=== PATIENT | male | born 1945 | race Caucasian/White ===

== ENCOUNTER 2016-08-15 13:50 | Inpatient (IN) | payer MEDICARE, BC ==
[~2016-08-15] VITALS: Ht 177.8 cm; Wt 60.8 kg
[~2016-08-15 13:50] MED LIST: /AMLO25TA PO; /AUGM875TA; /MOXI40TA PO; /PANT40TA PO; /SALMDISK; /WARF2TA; /WARF3TA; ADV500INH INH; ADVA230A INH; ALBU0.084 IN; ALBU17IN INH; ATOR1TAB19 PO; AZIT250T3 PO; AZIT500T2 PO; BACT400T; BROV15NE NEB; CARD180C4 PO; CLOT10TR MT; COLA50CA3 OR; COMBIVENT; COMBVENT; DILT180C PO; FLAG500T; FLUC10TA; FURO20TA2 PO; HYDR12.56 PO; HYDR25TA6; LASI20TA PO; LEVA1.256 INH; LEVA12INH INH; LEVA500T; LEVA500T PO; LEVO250T PO; LEVO750T33 PO; LISI10TA4 PO; LISI20TA5; MAG400TA PO; METO-209 PO; METO50TA2 PO; MILKSUS PO; MYLASSUD PO; NYST-6 TOP; NYST10CR MT; PANT40TA2 PO; POTA10CA PO; POTA20TA PO; POTA20TA4 PO; PRAD150C PO; PRED10TA PO; PRED10TA2; PRED10TA2 PO; PRED1TAB32 PO; PRED5TA PO; PREDPOW10; PRIN10TA PO; PROA1AER IN; PROAAER IN; PROT1TAB2 PO; PULM1SUS NEB; SENN8.6C PO; SENO8.6T10 PO; SILD50TA; SPIR1CAP IN; SPIR1CAP INH; SPIRIVA INH; SYMB80AE IN; TIOT18INH INH; TOPA50TA7 PO; TOPR100T PO; TYLE167L PO; TYLE325T5 PO; VIAGRA; VITA100037 PO; VITA100066 PO; ZANT150T; ZEBE5TAB; ZITH500T; ZITH500T PO; [UNRECOGNIZED DRUG - OTHER] PO; spiriva handihaler INH
[2016-08-15] MEDS ORDERED: IPRATROPIUM 0.5MG/ALBUTEROL 2.5MG INH SOL UD 3ML (DUONEB)(J7620) As Ordered ONE ×2 (14:12→14:32)
[2016-08-15 14:16] LABS: BASO % 0.1 % (0.0-1.0); EOS # 0.1 K/mm3 (0.0-0.50); EOS % 0.9 % (0.0-3.0); LARGE UNSTAINED CELL # 0.2 K/mm3 (0.0-0.4); LARGE UNSTAINED CELL % 1.9 % (0.0-4.0); LYMPH # 1.1 K/mm3 (1.5-4.5); LYMPH % 7.8 % (24.0-44.0); MEAN CORPUSCULAR HEMOGLOBIN 29.7 pg (27.0-33.0); MEAN CORPUSCULAR HGB CONC 31.4 g/dl (32.0-36.5); MEAN CORPUSCULAR VOLUME 94.6 fl (80.0-96.0); MONO # 0.9 K/mm3 (0.0-0.8); MONO % 7.6 % (0.0-5.0); NEUTROPHILS # 9.5 K/mm3 (1.8-7.7); NEUTROPHILS % 81.7 % (36.0-66.0); PLATELET COUNT, AUTOMATED 175 k/mm3 (150-450); RED CELL DISTRIBUTION WIDTH 17.4 % (11.5-14.5); WHITE BLOOD COUNT 11.6 K/mm3 (4.0-10.0)
[2016-08-15 14:23] LABS: ABG BASE EXCESS -6.7 (-2.0-2.0); ABG DEVICE NASAL CANN; ABG HCO3 14.4 MEQ/L (22.0-26.0); ABG PARTIAL PRESSURE CO2 20.2 mmHg (35.0-45.0); ABG PARTIAL PRESSURE O2 57.1 mmHg (75.0-100.0); ABG STANDARD HCO3 18.9 MEQ/L (22.0-26.0)
[2016-08-15 14:24] LABS: INR 3.04
[2016-08-15] MEDS ORDERED: methylPREDNISolone INJ 125 MG/2 ML VIAL (J2930) As Ordered ONE (14:31)
--- NOTE | 2016-08-15 14:38 | REP ---
Clinical: Shortness of breath. Comparison: 03/26/2016. Findings: Mediastinum and cardiac silhouette are stable with mild cardiomegaly again suggested. Mild pulmonary vascular congestion cannot be excluded. No focal consolidation, effusion, or pneumothorax. Skeletal structures stable. Impression: Mild stable cardiomegaly. Cannot exclude mild pulmonary vascular congestion. Signed by Rich Vargas MD 08/15/2016 02:30 P
[2016-08-15 14:54] LABS: ANION GAP 14 MEQ/L (8-16); BLOOD UREA NITROGEN 66 MG/DL (7-18); CALCIUM LEVEL 8.7 MG/DL (8.8-10.2); CARBON DIOXIDE LEVEL 21 MEQ/L (21-32); CHLORIDE LEVEL 102 MEQ/L (98-107); CREATININE FOR GFR 2.16 MG/DL (0.70-1.30); GLOMERULAR FILTRATION RATE 32.3 (>42); GLUCOSE, FASTING 152 MG/DL (83-110); SODIUM LEVEL 137 MEQ/L (136-145)
[2016-08-15 15:00] LABS: POTASSIUM SERUM 5.2 MEQ/L (3.5-5.1)
[2016-08-15] MEDS ORDERED: FUROSEMIDE 40 MG/4 ML VIAL (J1940) As Ordered ONE (15:05)
--- NOTE | 2016-08-15 15:12 | REP ---
Clinical: Shortness of breath. Comparison: 11/14/2015. Findings: Advanced diffuse emphysematous changes are appreciated areas of peripheral fibrosis and scattered scarring. Small amount of trapped fluid is identified within the left major fissure and minimal thickening to the right major fissure is appreciated small areas of opacity with in the superior right lower lobe may reflect sequelae and residual changes from prior infiltrate which has otherwise essentially resolved when compared to 11/14/2015. No significant acute area of consolidation, pleural effusion or pneumothorax appreciated. Mild chronic pulmonary vascular congestion and cardiomegaly is appreciated along with atherosclerotic changes to the thoracic aorta and coronary arteries. No significant adenopathy. Skeletal structures demonstrate osteopenia and degenerative changes. Impression: Advanced emphysematous changes with peripheral fibrosis and scattered scarring and scattered chronic changes related to prior right lower lobe infiltrate which has resolved. No significant acute consolidation. Small amount of trapped fluid in the left major fissure. Signed by Rich Vargas MD 08/15/2016 03:04 P
[2016-08-15] MEDS ORDERED: BISACODYL 5 MG TAB PO PRN (16:15)
[2016-08-15] MEDS ORDERED: ACETAMINOPHEN 500 MG TAB PO PRN (16:15)
[2016-08-15] MEDS ORDERED: ONDANSETRON 4MG/2ML VIAL (J2405) IV PRN (16:15)
[2016-08-15] MEDS ORDERED: ALBUTEROL SULFATE 2.5 MG/0.5 ML INH NEB SOLN NEB PRN (17:00)
--- NOTE | 2016-08-15 17:56 | EDDOCDS ---
Nurse's Notes [facility] Name: Sanjay Saeed Age: 71 yrs Sex: Male : 1945 Arrival Date: 08/15/2016 Time: 13:50 Bed 12 Private MD: Diagnosis: Acute systolic (congestive) heart failure Presentation: 08/15 13:54 Presenting complaint: EMS states: admitted to [facility] last week for unknown reason and pml discharged on Tuesday - shortness of breath on exertion which is reportedly new. Adult Sepsis Screening: The patient does not have new or worsening altered mentation. Patient's respiratory rate is less than 22. Systolic blood pressure is greater than 100. Patient has a qSOFA score of 0- Negative Sepsis Screen. Suicide/Homicide risk assessment- the patient denies having any suicidal and/or homicidal ideations and does not present with any other emotional, behavioral or mental health complaints. Status: Patient is not a account services manager or dependent. Transition of care: patient was not received from another setting of care. 13:54 Acuity: JEREMY Level 3 pml 13:54 Method Of Arrival: Ambulance pml Triage Assessment: 13:59 General: Appears in no apparent distress, Behavior is appropriate for age, cooperative. pml Pain: Location: diaphragm Pain currently is 5 out of 10 on a pain scale. The patient is triaged at the bedside. See Assessment in Nurses Notes section of ED record. Neurological: Level of Consciousness is awake, alert, Oriented to person, place, time. Cardiovascular: Capillary refill < 3 seconds Rhythm is atrial fibrillation. 14:05 Respiratory: Onset: The symptoms/episode began/occurred gradually, Airway is patent pml Respiratory effort is unlabored, Respiratory pattern is regular, Breath sounds are diminished bilaterally. Respiratory: Reports shortness of breath on exertion since 1 month ago. GI: Abdomen is non- distended. Derm: Skin is pink, warm & dry. Bruising that is dark purple, bilateral arms. Historical: - Allergies: IV Dye; Norvasc; Prilosec; - Home Meds: 1. diltiazem HCl 180 mg Oral cpER 1 cap once daily 2. prednisone 5 mg Oral tab once daily 3. Pradaxa 150 mg oral cap 1 cap 2 times per day 4. Advair Diskus 230-21 mcg/act 2puffs BID Inhl 5. levalbuterol HCl 1.25 mg/3 mL inhalation nebu 3 mL every 8 hours 6. Klor-Con 10 10 mEq Oral TbER 1 tab once daily 7. furosemide 20 mg Oral tab 1 tab once daily 8. pantoprazole 40 mg oral TbEC 1 tab once daily 9. atorvastatin 10 mg oral tab 1 tab once daily 10. ProAir HFA 90 mcg/actuation inhalation HFAA 2 puffs every 6 hours 11. Spiriva with HandiHaler 18 mcg Inhl CpDv 1 cap once daily 12. metoprolol succinate 100 mg Tb24 1 tab once daily - PMHx: Atrial Fib; Cardiac arrestfrom respiratory [id number]; COPD; GERD; High Cholesterol; Hypertension; Pulmonary Hypertension; Renal Failure w/o Dialysis; - PSHx: Cataract Surgery- Bilateral; Appendectomy; - Social history: Smoking status: Patient states former smoker of tobacco. No barriers to communication noted, The patient speaks fluent Colombian, Speaks appropriately for age. - Family history: Not pertinent. - : The pt / caregiver states he / she is on anticoagulants: Pradaxa (Dabigatran) Home medication list is obtained from the patient. - Exposure Risk Screening:: None identified. Screenin:06 Screening information is obtained from the patient. Fall risk: At risk due to pml immobility. Assistance ADL's: requires no assistance with activities of daily living. Abuse/DV Screen: The patient / caregiver reports he/she is: not in a situation that causes fear, pain or injury. Nutritional screening: No deficits noted. Advance Directives: There is no active DNR order. home support is adequate. Assessment: 14:06 General: see triage note. pml 14:16 General: Spo2 noted to remain in mid 80s with 6lpm. respiratory at bedside with angelic pml in progress. will trial venti mask after neb completed . 14:37 General: spo2 improved to 90% with 40% venti mask in place. pml 15:08 General: Appears in no apparent distress, Behavior is appropriate for age, cooperative. pml Neurological: Level of Consciousness is awake, alert, Oriented to person, place, time. Cardiovascular: Capillary refill < 3 seconds Rhythm is atrial fibrillation. Respiratory: Airway is patent Respiratory effort is even, unlabored. Derm: Skin is pink, warm & dry. 16:00 General: resting on stretcher, Spo2 decreased to 86%, pt placed on 40% Venti again with pml positive effect. 17:10 General: Appears in no apparent distress, Behavior is appropriate for age, cooperative. pml Neurological: Level of Consciousness is awake, alert, Oriented to person, place, time. Cardiovascular: Capillary refill < 3 seconds Rhythm is atrial fibrillation. Respiratory: Airway is patent Respiratory effort is even, unlabored. Derm: Skin is pink, warm & dry. 17:52 General: Appears in no apparent distress, Behavior is appropriate for age, cooperative. pml 17:52 Neurological: Level of Consciousness is awake, alert, Oriented to person, place, time. pml Cardiovascular: Capillary refill < 3 seconds Rhythm is atrial fibrillation. Respiratory: Airway is patent Respiratory effort is even, unlabored. GI: Abdomen is non- distended. Derm: Skin is pink, warm & dry. Vital Signs: 13:56 BP 99 / 69 (auto/); pml 14:00 Pulse 68 MON; Pulse Ox 82% ; pml 14:04 BP 99 / 69; Pulse 77; Resp 18; Temp 96.8(TE); Pulse Ox 82% on 4 lpm NC; Weight 63.5 kg pml (R); Height 5 ft. 10 in. (177.80 cm) (R); Pain 0/10; 14:11 Pulse 66 MON; Pulse Ox 83% ; pml 14:12 BP 113 / 65 (auto/); pml 14:26 Pulse 62 MON; Pulse Ox 90% ; pml 14:27 BP 120 / 59 (auto/); pml 14:57 BP 124 / 61 (auto/); pml 15:04 Pulse 68 MON; Pulse Ox 100% ; pml 15:12 BP 124 / 75 (auto/); pml 15:12 Pulse 70 MON; Pulse Ox 96% ; pml 15:27 BP 124 / 72 (auto/); pml 15:28 Pulse 70 MON; Pulse Ox 91% ; pml 15:42 BP 185 / 70 (auto/); pml 15:43 Pulse 70 MON; Pulse Ox 89% ; pml 15:57 BP 127 / 74 (auto/); pml 15:58 Pulse 78 MON; Pulse Ox 86% ; pml 16:12 BP 148 / 72 (auto/); pml 16:13 Pulse 70 MON; Pulse Ox 90% ; pml 16:27 Pulse 74 MON; Pulse Ox 95% ; pml 16:27 BP 115 / 55 (auto/); pml 16:42 Pulse 72 MON; Pulse Ox 93% ; pml 16:42 BP 116 / 60 (auto/); pml 16:57 Pulse 76 MON; Pulse Ox 94% ; pml 16:57 BP 133 / 72 (auto/); pml 17:54 BP 127 / 71; Pulse 83; Resp 20; Temp 97.8; Pulse Ox 93% on 40% Venturi mask; Pain 0/10; pml 14:04 Body Mass Index 20.09 (63.50 kg, 177.80 cm) [facility] Vitals: 14:05 Log In Time N/A - ambulance arrival. [facility] ED Course: 13:51 Patient visited by Marycruz Lennon, Perl Developer. deg 13:51 Eliz Fraga,RN is Primary Nurse. deg 13:51 Patient moved to Waiting deg 13:51 Patient moved to 12 deg 13:52 Alexander Tamez MD is Attending Physician. br1 13:56 Triage Initiated pml 14:03 Patient visited by Alexander Tamez MD. br1 14:06 The patient / caregiver is instructed regarding the plan of care and ED course. Patient pml has correct armband on for positive identification. Placed in gown. Bed in low position. Call light in reach. Side rails up X2. front desk monitor on. Pulse ox on. NIBP on. 14:06 O2 via nasal cannula \T\ 6L/min. pml 14:07 Inserted peripheral IV: 20gauge IV in right antecubital area and blood collected. pml Patient tolerated the procedure well. by AMILCAR Quiroga. 14:12 Patient visited by Angelo Em. jml1 14:12 EKG done. (by ED staff). Reviewed by Alexander Tamez MD. jml1 14:18 Patient visited by Eliz Fraga,AMILCAR. pml 14:19 -Arterial Blood Gas Sent. lb 14:30 Patient visited by Eliz Fraga,AMILCAR. pml 14:37 O2 via Venturi mask \T\ 12L/min - 40%. pml 14:38 Patient visited by Eliz Fraga RN. pml 14:47 Chest, 1 View Returned. EDMS 15:09 Patient visited by Eliz Fraga RN. pml 15:09 O2 via Venturi mask \T\ 6L/min - 30%. pml 15:25 CT Chest Without Contrast Returned. EDMS 15:45 Patient visited by Alexander Tamez MD. br1 16:04 Ekta Payne is Hospitalizing Provider. br1 16:21 [facility] Payment Agreement was scanned into [employer] and attached to record. zo 17:52 No procedures done that require assistance. pml Administered Medications: 14:20 Drug: Albuterol-Ipratropium 3 ml [ipratropium-albuterol 0.5 mg-3 mg(2.5 mg base)/3 mL lb nebulization soln (3 mL)] Route: Inhalation; 14:35 Drug: Albuterol-Ipratropium 3 ml [ipratropium-albuterol 0.5 mg-3 mg(2.5 mg base)/3 mL km6 nebulization soln (3 mL)] Route: Inhalation; 14:37 Drug: Solu-MEDROL 125 mg [Solu-Medrol 500 mg intravenous solution (125 mg)] Route: IVP; pml Site: right antecubital; 15:08 Drug: Furosemide 40 mg [furosemide 10 mg/mL injection solution (4 mL)] Route: IVP; pml Site: right antecubital; Output: 17:54 Urine: 225.00ml (Voided); Total: 225.00ml. pml RT: 14:20 ABG's drawn from right radial artery allens test done and positive pressure held for 5 lb minutes no bleeding noted pressure bandage applied specimen sent pt. tolerated well. 14:20 Initial Med Neb Given as ordered Patient was instructed and evaluated on procedure lb Patient tolerated procedure well without adverse effect. Respiratory: Breath sounds are diminished bilaterally. 14:35 Subsequent Med Neb Given as ordered Patient tolerated procedure well without adverse km6 effect. Respiratory: Breath sounds are diminished bilaterally. Order Results: Lab Order: B-Type Natiuretic Peptide; SPEC'M 08/15/16 14:08 Test: BRAIN NATRIURETIC PEPTIDE; Value: 3460; Range: <100; Abnormal: Above high normal; Units: PG/ML; Status: F Lab Order: Basic Metabolic Profile; SPEC'M 08/15/16 14:08 Test: GLUCOSE, FASTING; Value: 152; Range: 83-110; Abnormal: Above high normal; Units: MG/DL; Status: F Test: BLOOD UREA NITROGEN; Value: 66; Range: 7-18; Abnormal: Above high normal; Units: MG/DL; Status: F Test: CREATININE FOR GFR; Value: 2.16; Range: 0.70-1.30; Abnormal: Above high normal; Units: MG/DL; Status: F Test: GLOMERULAR FILTRATION RATE; Value: 32.3; Range: >42; Abnormal: Below low normal; Status: F Test: SODIUM LEVEL; Value: 137; Range: 136-145; Units: MEQ/L; Status: F Test: POTASSIUM SERUM; Value: 5.2; Range: 3.5-5.1; Abnormal: Above high normal; Units: MEQ/L; Status: F Test: CHLORIDE LEVEL; Value: 102; Range: 98-107; Units: MEQ/L; Status: F Test: CARBON DIOXIDE LEVEL; Value: 21; Range: 21-32; Units: MEQ/L; Status: F Test: ANION GAP; Value: 14; Range: 8-16; Units: MEQ/L; Status: F Test: CALCIUM LEVEL; Value: 8.7; Range: 8.8-10.2; Abnormal: Below low normal; Units: MG/DL; Status: F Test Note: ; Units are mL/min/1.73 m2 Chronic Kidney Disease Staging per NKF: Stage I & II GFR >=60 Normal to Mildly Decreased Stage III GFR 30-59 Moderately Decreased Stage IV GFR 15-29 Severely Decreased Stage V GFR <15 Very Little GFR Left ESRD GFR <15 on CAMERA OPERATOR Lab Order: CBC with Diff; SPEC'M 08/15/16 14:08 Test: WHITE BLOOD COUNT; Value: 11.6; Range: 4.0-10.0; Abnormal: Above high normal; Units: K/mm3; Status: F Test: RED BLOOD COUNT; Value: 4.78; Range: 4.30-6.10; Units: M/mm3; Status: F Test: HEMOGLOBIN; Value: 14.2; Range: 14.0-18.0; Units: g/dl; Status: F Test: HEMATOCRIT; Value: 45.3; Range: 42.0-52.0; Units: %; Status: F Test: MEAN CORPUSCULAR VOLUME; Value: 94.6; Range: 80.0-96.0; Units: fl; Status: F Test: MEAN CORPUSCULAR HEMOGLOBIN; Value: 29.7; Range: 27.0-33.0; Units: pg; Status: F Test: MEAN CORPUSCULAR HGB CONC; Value: 31.4; Range: 32.0-36.5; Abnormal: Below low normal; Units: g/dl; Status: F Test: RED CELL DISTRIBUTION WIDTH; Value: 17.4; Range: 11.5-14.5; Abnormal: Above high normal; Units: %; Status: F Test: PLATELET COUNT, AUTOMATED; Value: 175; Range: 150-450; Units: k/mm3; Status: F Test: NEUTROPHILS %; Value: 81.7; Range: 36.0-66.0; Abnormal: Above high normal; Units: %; Status: F Test: LYMPH %; Value: 7.8; Range: 24.0-44.0; Abnormal: Below low normal; Units: %; Status: F Test: MONO %; Value: 7.6; Range: 0.0-5.0; Abnormal: Above high normal; Units: %; Status: F Test: EOS %; Value: 0.9; Range: 0.0-3.0; Units: %; Status: F Test: BASO %; Value: 0.1; Range: 0.0-1.0; Units: %; Status: F Test: LARGE UNSTAINED CELL %; Value: 1.9; Range: 0.0-4.0; Units: %; Status: F Test: NEUTROPHILS #; Value: 9.5; Range: 1.8-7.7; Abnormal: Above high normal; Units: K/mm3; Status: F Test: LYMPH #; Value: 1.1; Range: 1.5-4.5; Abnormal: Below low normal; Units: K/mm3; Status: F Test: MONO #; Value: 0.9; Range: 0.0-0.8; Abnormal: Above high normal; Units: K/mm3; Status: F Test: EOS #; Value: 0.1; Range: 0.0-0.50; Units: K/mm3; Status: F Test: BASO #; Value: 0.0; Range: 0.0-0.2; Units: K/mm3; Status: F Test: LARGE UNSTAINED CELL #; Value: 0.2; Range: 0.0-0.4; Units: K/mm3; Status: F Lab Order: Cardiac Injury Profile; [facility] 08/15/16 14:08 Test: CPK CREATINE PHOSPHOKINASE; Value: 230; Range: 39-308; Units: U/L; Status: F Test: CK-MB VALUE MASS; Value: 7.2; Range: 0.0-3.6; Abnormal: Above high normal; Units: NG/ML; Status: F Test: MB/CK RELATIVE INDEX; Value: 3.13; Range: < OR =4; Status: F Test Note: ; DIAGNOSIS CRITERIA MMB ng/ml Relative Index (RI) NON-AMI < or = 5 N/A BANG ZONE > 5 < or = 4 AMI > 5 > 4 Lab Order: Troponin; [facility] 08/15/16 14:08 Test: TROPONIN I; Value: 0.06; Range: < 0.10; Units: NG/ML; Status: F Test Note: ; Troponin I Reference Interval for [employer] LOCI: 99th Percentile= 0.00-0.045 ng/ml Risk Stratification: <= 0.10 ng/ml Decreased Risk for Adverse Clinical Events. 0.10-1.50 ng/ml Increased Risk for Adverse Clinical Events. Evaluation of additional criterion and/or repeat testing in 2-6 hours is suggested to rule out myocardial damage. >= 1.50 ng/ml Indicative of Myocardial Injury. Lab Order: PT/INR; [facility] 08/15/16 14:08 Test: PROTHROMBIN TIME; Value: 31.5; Range: 12.3-14.5; Abnormal: Above high normal; Units: SECONDS; Status: F Test: INR; Value: 3.04; Status: F Test Note: ; THERAPUTIC HUMAN INR VALUES INDICATIONS NORMAL RANGES PROPHYLAXIS/TREATMENT OF: VENOUS THROMBOSIS 2.0-3.0 PULMONARY EMBOLISM 2.0-3.0 PREVENTION OF SYSTEMIC EMBOLISM FROM: TISSUE HEART VALVES 2.0-3.0 ACUTE MYOCARDIAL INFARCTION 2.0-3.0 VALVULAR HEART DISEASE 2.0-3.0 ATRIAL FIBRILLATION 2.0-3.0 MECHANICAL VALVES(HIGH RISK) 2.5-3.5 RECURRENT MYOCARDIAL INFARCTION 2.5-3.5 Lab Order: PTT; [facility] 08/15/16 14:08 Test: PARTIAL THROMBOPLASTIN TIME; Value: 65.5; Range: 26.6-37.1; Abnormal: Above high normal; Units: SECONDS; Status: F Lab Order: -Arterial Blood Gas; SPEC'M 08/15/16 14:13 Test: ABG pH (ARTERIAL); Value: 7.470; Range: 7.350-7.450; Abnormal: Above high normal; Units: UNITS; Status: F Test: ABG PARTIAL PRESSURE CO2; Value: 20.2; Range: 35.0-45.0; Abnormal: Below low normal; Units: mmHg; Status: F Test: ABG PARTIAL PRESSURE O2; Value: 57.1; Range: 75.0-100.0; Abnormal: Below low normal; Units: mmHg; Status: F Test: ABG TOTAL CO2; Value: 15.0; Range: 23.0-31.0; Abnormal: Below low normal; Units: MEQ/L; Status: F Test: ABG HCO3; Value: 14.4; Range: 22.0-26.0; Abnormal: Below low normal; Units: MEQ/L; Status: F Test: ABG BASE EXCESS; Value: -6.7; Range: -2.0-2.0; Abnormal: Below low normal; Status: F Test: ABG STANDARD HCO3; Value: 18.9; Range: 22.0-26.0; Abnormal: Below low normal; Units: MEQ/L; Status: F Test: ABG O2 SATURATION; Value: 88.9; Range: 95.0-99.0; Abnormal: Below low normal; Units: %; Status: F Test: ABG DEVICE; Value: NASAL DOROTHY; Status: F Lab Order: D-Dimer Quant; SPEC'M 08/15/16 14:10 Test: D-DIMER QUANT; Value: 380.3; Range: <500; Units: ng/ml; Status: F Radiology Order: Chest, 1 View Test: Chest, 1 View REASON FOR EXAMINATION: Shortness of Breath; Clinical: Shortness of breath.; ; Comparison: 03/26/2016.; ; Findings:; Mediastinum and cardiac silhouette are stable with mild cardiomegaly again; suggested. Mild pulmonary vascular congestion cannot be excluded. No focal; consolidation, effusion, or pneumothorax. Skeletal structures stable.; ; Impression:; Mild stable cardiomegaly.; Cannot exclude mild pulmonary vascular congestion.; ; ; Signed by; Rich Vargas MD 08/15/2016 02:30 P; Radiology Order: CT Chest Without Contrast Test: CT Chest Without Contrast REASON FOR EXAMINATION: Shortness of Breath; Clinical: Shortness of breath.; ; Comparison: 11/14/2015.; ; Findings:; Advanced diffuse emphysematous changes are appreciated areas of peripheral; fibrosis and scattered scarring. Small amount of trapped fluid is identified; within the left major fissure and minimal thickening to the right major fissure; is appreciated small areas of opacity with in the superior right lower lobe may; reflect sequelae and residual changes from prior infiltrate which has otherwise; essentially resolved when compared to 11/14/2015. No significant acute area of; consolidation, pleural effusion or pneumothorax appreciated. Mild chronic; pulmonary vascular congestion and cardiomegaly is appreciated along with; atherosclerotic changes to the thoracic aorta and coronary arteries. No; significant adenopathy. Skeletal structures demonstrate osteopenia and; degenerative changes.; ; Impression:; Advanced emphysematous changes with peripheral fibrosis and scattered scarring; and scattered chronic changes related to prior right lower lobe infiltrate which; has resolved. No significant acute consolidation. Small amount of trapped fluid; in the left major fissure.; ; ; Signed by; Rich Vargas MD 08/15/2016 03:04 P; Outcome: 16:04 Decision to Hospitalize by Provider. br1 17:52 Discharge Assessment: Patient awake, alert and oriented x 3. No cognitive and/or pml functional deficits noted. Patient verbalized understanding of disposition instructions. patient administered narcotics - no. The following High Risk Discharge criteria are identified: None. Admitted to PCU accompanied by nurse, accompanied by tech, via stretcher, with oxygen, on monitor, with chart. Condition: good Condition: stable. No special radiology studies were completed. Admission hand-off: Report Faxed Fax receipt verified by Eugenio ADVISOR TO COMMAND IN COMBAT. Property :Personal belongings accompany Pt. 17:56 Patient left the ED. pml Signatures: Dispatcher [employer] EDMarycruz Snider, Perl Developer Unit deg Sharri Garcia Kimberly km6 Lisa Boyce Brian, MD MD br1 Angelo Em Paulina, RN RN pml Isaias Rodriguez rn1 Corrections: (The following items were deleted from the chart) 14:05 13:59 Cardiovascular: Capillary refill < 3 seconds Rhythm is pml [facility] 14:07 14:04 BP 99 / 69; Pulse 77bpm; Resp 18bpm; Pulse Ox 94% 4 lpm Nasal Cannula; Temp 96.8F pml Temporal; 63.5 kg Reported; Height 5 ft. 10 in. Reported; BMI: 20.0; Pain 0/10; rn1 17: 16:00 General: Appears in no apparent distress, Behavior is appropriate for age, pml cooperative, [facility] 16:00 Neurological: Level of Consciousness is awake, alert, Oriented to person, place, [facility] time, [facility] 16:00 Cardiovascular: Capillary refill < 3 seconds Rhythm is atrial fibrillation [facility] 16:00 Respiratory: Airway is patent Respiratory effort is even, unlabored, [facility] 16:00 Derm: Skin is pink, warm & dry. [facility] MTDD
--- NOTE | 2016-08-15 17:56 | EDDOCDS ---
Physician Documentation [facility], [place] Name: Sanjay Saeed Age: 71 yrs Sex: Male : 1945 Arrival Date: 08/15/2016 Time: 13:50 Bed 12 Private MD: Disposition: 08/15/16 16:04 Hospitalization ordered by Ekta Payne for Inpatient Admission. Preliminary diagnosis is Acute systolic (congestive) heart failure. - Bed requested for PCU. - Status is Inpatient Admission. pml - Condition is Stable. - Problem is new. - Symptoms have improved. Historical: - Allergies: IV Dye; Norvasc; Prilosec; - Home Meds: 1. diltiazem HCl 180 mg Oral cpER 1 cap once daily 2. prednisone 5 mg Oral tab once daily 3. Pradaxa 150 mg oral cap 1 cap 2 times per day 4. Advair Diskus 230-21 mcg/act 2puffs BID Inhl 5. levalbuterol HCl 1.25 mg/3 mL inhalation nebu 3 mL every 8 hours 6. Klor-Con 10 10 mEq Oral TbER 1 tab once daily 7. furosemide 20 mg Oral tab 1 tab once daily 8. pantoprazole 40 mg oral TbEC 1 tab once daily 9. atorvastatin 10 mg oral tab 1 tab once daily 10. ProAir HFA 90 mcg/actuation inhalation HFAA 2 puffs every 6 hours 11. Spiriva with HandiHaler 18 mcg Inhl CpDv 1 cap once daily 12. metoprolol succinate 100 mg Tb24 1 tab once daily - PMHx: Atrial Fib; Cardiac arrestfrom respiratory [id number]; COPD; GERD; High Cholesterol; Hypertension; Pulmonary Hypertension; Renal Failure w/o Dialysis; - PSHx: Cataract Surgery- Bilateral; Appendectomy; - Social history: Smoking status: Patient states former smoker of tobacco. No barriers to communication noted, The patient speaks fluent Yi, Speaks appropriately for age. - Family history: Not pertinent. - : The pt / caregiver states he / she is on anticoagulants: Pradaxa (Dabigatran) Home medication list is obtained from the patient. - Exposure Risk Screening:: None identified. Vital Signs: 08/15 13:56 BP 99 / 69 (auto/); pml 14:00 Pulse 68 MON; Pulse Ox 82% ; pml 14:04 BP 99 / 69; Pulse 77; Resp 18; Temp 96.8(TE); Pulse Ox 82% on 4 lpm NC; Weight 63.5 kg pml / 139.99 lbs (R); Height 5 ft. 10 in. (177.80 cm) (R); Pain 0/10; 14:11 Pulse 66 MON; Pulse Ox 83% ; pml 14:12 BP 113 / 65 (auto/); pml 14:26 Pulse 62 MON; Pulse Ox 90% ; pml 14:27 BP 120 / 59 (auto/); pml 14:57 BP 124 / 61 (auto/); pml 15:04 Pulse 68 MON; Pulse Ox 100% ; pml 15:12 BP 124 / 75 (auto/); pml 15:12 Pulse 70 MON; Pulse Ox 96% ; pml 15:27 BP 124 / 72 (auto/); pml 15:28 Pulse 70 MON; Pulse Ox 91% ; pml 15:42 BP 185 / 70 (auto/); pml 15:43 Pulse 70 MON; Pulse Ox 89% ; pml 15:57 BP 127 / 74 (auto/); pml 15:58 Pulse 78 MON; Pulse Ox 86% ; pml 16:12 BP 148 / 72 (auto/); pml 16:13 Pulse 70 MON; Pulse Ox 90% ; pml 16:27 Pulse 74 MON; Pulse Ox 95% ; pml 16:27 BP 115 / 55 (auto/); pml 16:42 Pulse 72 MON; Pulse Ox 93% ; pml 16:42 BP 116 / 60 (auto/); pml 16:57 Pulse 76 MON; Pulse Ox 94% ; pml 16:57 BP 133 / 72 (auto/); pml 17:54 BP 127 / 71; Pulse 83; Resp 20; Temp 97.8; Pulse Ox 93% on 40% Venturi mask; Pain 0/10; pml 14:04 Body Mass Index 20.09 (63.50 kg, 177.80 cm) pml MDM: 14:03 Electromechanical Assembler/Pulse Ox/q 30 min VS ordered. br1 14:03 IV Saline Lock ordered. br1 14:03 Rhythm Strip to chart ordered. br1 14:03 Undress patient appropriately for examination ordered. br1 14:03 B-Type Natiuretic Peptide Ordered. EDMS 14:03 Basic Metabolic Profile Ordered. EDMS 14:04 CBC with Diff Ordered. EDMS 14:04 Cardiac Injury Profile Ordered. EDMS 14:04 Troponin Ordered. EDMS 14:04 ECG WITH READING ER PHYS+CARDIAG ordered. EDMS 14:05 PT/INR Ordered. EDMS 14:05 PTT Ordered. EDMS 14:05 Chest, 1 View Ordered. EDMS 14:05 Oxygen at 4L/Min NC or Home dosage ordered. br1 14:05 Call Respiratory ordered. br1 14:06 -Arterial Blood Gas Ordered. EDMS 14:06 Albuterol-Ipratropium 3 ml Inhalation once ordered. br1 14:24 Call Respiratory complete. deg 14:26 CBC with Diff Reviewed. br1 14:26 PT/INR Reviewed. br1 14:26 PTT Reviewed. br1 14:26 -Arterial Blood Gas Reviewed. br1 14:29 Solu-MEDROL 125 mg IVP once ordered. br1 14:29 Albuterol-Ipratropium 3 ml Inhalation once ordered. br1 14:29 D-Dimer Quant Ordered. EDMS 14:38 CT Chest Without Contrast Ordered. EDMS 14:58 B-Type Natiuretic Peptide Reviewed. br1 14:58 D-Dimer Quant Reviewed. br1 14:58 Chest, 1 View Reviewed. br1 14:59 Furosemide 40 mg IVP once ordered. br1 15:00 BED REQUEST+ADM ordered. EDMS 15:40 Basic Metabolic Profile Reviewed. br1 15:40 Cardiac Injury Profile Reviewed. br1 15:40 Troponin Reviewed. br1 15:40 CT Chest Without Contrast Reviewed. br1 16:02 -Influenza A&B Rapid Antigen - Nose Ordered. EDMS 16:16 Financial registration complete. zo 16:21 Admission / Observation Status ordered. EDMS 16:21 2 GRAM SODIUM DIET ordered. EDMS 16:21 [facility] [place] Agreement was scanned into [employer] and attached to record. zo 16:54 PHYSICAL THERAPY EVAL & TREAT ordered. EDMS Administered Medications: 14:20 Drug: Albuterol-Ipratropium 3 ml [ipratropium-albuterol 0.5 mg-3 mg(2.5 mg base)/3 mL lb nebulization soln (3 mL)] Route: Inhalation; 14:35 Drug: Albuterol-Ipratropium 3 ml [ipratropium-albuterol 0.5 mg-3 mg(2.5 mg base)/3 mL km6 nebulization soln (3 mL)] Route: Inhalation; 14:37 Drug: Solu-MEDROL 125 mg [Solu-Medrol 500 mg intravenous solution (125 mg)] Route: IVP; pml Site: right antecubital; 15:08 Drug: Furosemide 40 mg [furosemide 10 mg/mL injection solution (4 mL)] Route: IVP; pml Site: right antecubital; Signatures: Dispatcher [employer] EDMS Marycruz Lennon, Trustee Of Estate Unit deg Lisa Boyce Brian, MD MD br1 Eliz Fraga RN RN pml Micheal Perez RN RN [facility] Sharri Garcia Kimberly 6 The chart was reviewed and I authenticate all verbal orders and agree with the evaluation and treatment provided.Attachments: 16:21 [facility] Payment Agreement zo MTDD
[2016-08-15 18:05] VITALS: BP 125/71
[2016-08-15] MEDS ORDERED: FUROSEMIDE 100 MG/10 ML VIAL (J1940) IV ONE (18:30)
[2016-08-15 19:59] VITALS: BP 120/70
[2016-08-15] MEDS: ATORVASTATIN 10 MG TAB PO SCH (20:18)
[2016-08-15] MEDS: SENOKOT S TAB PO SCH (20:18)
[2016-08-15] MEDS: ADVAIR HFA 230/21 INHALER INH SCH (20:35)
[2016-08-15] MEDS ORDERED: DABIGATRAN ETEXILATE 75 MG CAP (PRADAXA) PO SCH (21:00)
--- NOTE | 2016-08-15 21:34 | HPE ---
DATE OF ADMISSION: 08/15/2016 PRIMARY CARE PROVIDER: [facility] BARK FITTER: Dr. Antony. CHIEF COMPLAINT: Extreme weakness and inability to get out of bed, increased shortness of breath since yesterday. PAST MEDICAL HISTORY: 1. Chronic obstructive pulmonary disease (COPD). 2. Chronic hypoxic respiratory failure on four liters home oxygen. 3. Severe pulmonary hypertension. 4. Chronic cor pulmonale. 5. Diastolic congestive heart failure (CHF). 6. Atrial fibrillation, rate controlled. 7. Hypertension. 8. History of cardiac arrest in 2012. 9. Hyperlipidemia. 10. Chronic steroid dependence. HISTORY OF PRESENT ILLNESS: This is a 71-year-old male who was recently admitted in [facility] from (please clarify) to 08/13, where he was treated for CHF exacerbation and was discharged two days ago. On discharge, his breathing was almost at baseline; however, he was very weak. He did walk with physical therapy in the hospital. Since yesterday, his breathing again worsened and he was having extreme generalized weakness. This morning, his legs were so weak that he was unable to get out of bed, so he was brought to the emergency room. On initial presentation to the emergency department (ED), the patient was saturating at 82% with his home four liters nasal cannula, so the patient was put on Venturi (Venti) mask 35-40%. With that, his oxygenation improved to above 90%. The patient had CT chest done in the emergency room which showed advanced emphysematous changes with fibrosis and scarring, and scattered chronic changes related to prior right lower lobe infiltrate which has resolved. There was no consolidation. There was small amount of trapped fluid in the left major fissure. Chest x-ray done showed mild stable cardiomegaly, possible mild pulmonary vascular congestion. The patient had laboratory work done which showed brain natriuretic peptide (BNP) of 3460, and also an elevated creatinine of 2.16. The patient was diagnosed with CHF exacerbation and was admitted under the hospitalist service. PAST SURGICAL HISTORY: 1. Vocal cord polyp removal about 30 years ago. 2. Appendectomy. 3. Cataract surgery. FAMILY HISTORY: Noncontributory. SOCIAL HISTORY: Former smoker. Denies alcohol use. Denies any history of use of recreational drugs. HOME MEDICATIONS: - albuterol two puff inhalation every four hours as needed - atorvastatin 10 mg at bedtime - cholecalciferol 1000 units by mouth daily - Pradaxa 150 mg by mouth twice a day - diltiazem CD 180 mg by mouth daily - Lasix 20 mg by mouth daily - levalbuterol 1.25 mg inhalation four times a day as needed for shortness of breath - metoprolol succinate 100 mg by mouth daily - pantoprazole 40 mg by mouth daily - potassium chloride 20 mEq by mouth daily - prednisone 5 mg by mouth daily - Advair inhalation 230/21 two puffs inhalation twice a day - Spiriva one inhalation daily REVIEW OF SYSTEMS: All 10-point review of systems are negative except those mentioned in history of present illness (HPI). PHYSICAL EXAMINATION: GENERAL: Patient awake, alert, and oriented times three, lying down in bed in no acute distress. There is increased pad of fat over the neck and the shoulders, and also appearance of mood facies, possibly related to chronic steroid use. HEENT: Normocephalic, atraumatic. Moist mucous membranes. Anicteric eyes. CHEST: Clear to auscultation. Good air entry. CARDIOVASCULAR: S1, S2. Irregular. Bradycardia. No rub. There is a systolic murmur present. No gallop. ABDOMEN: Soft. There is mild tenderness in the right upper quadrant. Bowel sounds are normal. EXTREMITIES: No edema. On the back there is presence of 2+ sacral edema. LABORATORY DATA: WBC 11.6, hemoglobin 14.2, platelets 175. Sodium 137, potassium 5.2, chloride 102, bicarbonate 21, BUN 66, creatinine 2.1, glucose 152, calcium 8.7. BNP 3460. Cardiac enzymes are negative. Blood gas: PH 7.47, pCO2 20, pO2 57. INR 3. ASSESSMENT AND PLAN: This is a 71-year-old male admitted for congestive heart failure (CHF) exacerbation. PLAN: 1. For CHF exacerbation, this is a diastolic CHF exacerbation, as well as acute on chronic right-sided heart failure. We will place the patient on intravenous (IV) Lasix 80 mg twice a day. We will monitor for intake and output. 2. Acute kidney injury due to CHF exacerbation. We will continue with diuresis. We will monitor intake and output. If creatinine continues to worsen, we will then discontinue Lasix. At this point it is difficult to periodicals clerk the patient's intravascular volume because of severe pulmonary hypertension and right-sided heart failure. 3. Chronic obstructive pulmonary disease (COPD) seems to be at baseline. We will continue with Advair, Spiriva, as-needed albuterol nebulizers and prednisone 5 mg daily. 4. Atrial fibrillation, rate is controlled. We will continue with diltiazem and metoprolol. We will hold Pradaxa for one day, as international normalized ratio (INR) is elevated. 5. Coagulopathy, possibly due to recent sickness and the patient being on Pradaxa. We will hold it for 24 hours and then recheck INR. Once it is less than two, will restart. 6. Gastroesophageal reflux disease (GERD). We will continue with proton pump inhibitor (PPI). 7. Hyperlipidemia. We will continue with atorvastatin. 8. Hypertension. Will continue with metoprolol and diltiazem. 9. Severe pulmonary hypertension with cor pulmonale. Will continue with diuresis. 10. Deep venous thrombosis (DVT) prophylaxis. The patient is on Pradaxa. 11. Acute on chronic hypoxic respiratory failure. The patient requiring more than his usual four liters of oxygen. He was down to 82% on arrival. We will continue with Venti-mask to maintain oxygen saturation between 88-92%. Last echocardiogram done in [facility] on 08/13/2016, shows left ventricular ejection fraction of 65-70%. Systolic function is normal. There was concentric left ventricular hypertrophy. There was right ventricular volume and pressure overload. The patient was in atrial fibrillation, so diastolic indices could not be accurately measured. There was right ventricular moderate hypokinesia and right ventricular hypertrophy. Right atrium severely dilated. The aortic valve, mitral valve, were normal. The tricuspid valve was normal in structure; however, showed severe tricuspid regurgitation. There was severe pulmonary hypertension and estimated pulmonary arterial pressure was 104 mmHg. The structure of pulmonary valve was normal. There was mild pulmonary regurgitation. There was no pericardial effusion. Inferior vena cava (IVC) could not be visualized. 12. Generalized weakness, possibly due to progressive cardiopulmonary disease. We will consult physical therapy for evaluation.
[2016-08-15 23:41] VITALS: BP 127/65
[2016-08-16 04:50] VITALS: BP 137/75
[2016-08-16 05:39] LABS: INR 2.53
[2016-08-16 05:41] LABS: BASO % 0.2 % (0.0-1.0); EOS % 0.2 % (0.0-3.0); LARGE UNSTAINED CELL # 0.1 K/mm3 (0.0-0.4); LARGE UNSTAINED CELL % 0.8 % (0.0-4.0); LYMPH # 0.5 K/mm3 (1.5-4.5); MEAN CORPUSCULAR HEMOGLOBIN 29.1 pg (27.0-33.0); MEAN CORPUSCULAR HGB CONC 31.9 g/dl (32.0-36.5); MEAN CORPUSCULAR VOLUME 91.4 fl (80.0-96.0); MONO # 0.3 K/mm3 (0.0-0.8); MONO % 3.3 % (0.0-5.0); NEUTROPHILS # 7.7 K/mm3 (1.8-7.7); NEUTROPHILS % 89.6 % (36.0-66.0); PLATELET COUNT, AUTOMATED 173 k/mm3 (150-450); RED CELL DISTRIBUTION WIDTH 17.1 % (11.5-14.5); WHITE BLOOD COUNT 8.6 K/mm3 (4.0-10.0)
[2016-08-16 06:02] LABS: ALBUMIN 3.2 GM/DL (3.2-5.2); ALBUMIN/GLOBULIN RATIO 1.07 (1.00-1.93); BILIRUBIN,TOTAL 2.7 MG/DL (0.2-1.0); CALCIUM LEVEL 8.2 MG/DL (8.8-10.2); CREATININE FOR GFR 1.65 MG/DL (0.70-1.30); GLOMERULAR FILTRATION RATE 44.1 (>42); MAGNESIUM LEVEL 2.6 MG/DL (1.8-2.4); POTASSIUM SERUM 3.8 MEQ/L (3.5-5.1); TOTAL PROTEIN 6.2 GM/DL (6.4-8.2)
[2016-08-16] MEDS: TIOTROPIUM INHALER/CAPSULE (SPIRIVA) INH SCH (07:42)
[2016-08-16] MEDS: ADVAIR HFA 230/21 INHALER INH SCH ×2 (07:43→19:57)
--- NOTE | 2016-08-16 07:47 | ECGEPIP ---
Stationary ECG Study [facility] - ED Test Date: 2016-08-15 Pat Name: VANESSA COKER Department: Room: - Gender: M Passenger Service Representative: CULLEN : 1945 Requested By: SOLA Rodríguez Order Number: [id number] Reading MD: Ayesha Camacho Measurements Intervals [place] Rate: 64 P: WI: 0 QRS: 106 QRSD: 101 T: 0 QT: 422 QTc: 436 Interpretive Statements ATRIAL FIBRILLATION MARKED RIGHT AXIS DEVIATION NONSPECIFIC ST & T-WAVE ABNORMALITY DECREASED RATE 03/26/16 Electronically Signed On 08-16-2016 7:47:12 EST by Ayesha Camacho
[2016-08-16 08:00] VITALS: BP 123/74
[2016-08-16] MEDS: diltiaZEM **CD** 180 MG CAP PO SCH (08:50)
[2016-08-16] MEDS: SENOKOT S TAB PO SCH ×2 (08:52→20:13)
[2016-08-16] MEDS: METOPROLOL SUCC (TopROL XL) 100MG *XL* TAB PO SCH (08:54)
[2016-08-16] MEDS: PANTOPRAZOLE 40MG TAB (PROTONIX) PO SCH (08:54)
[2016-08-16] MEDS: predniSONE 5 MG TAB PO SCH (08:54)
[2016-08-16] MEDS: FUROSEMIDE 100 MG/10 ML VIAL (J1940) IV SCH ×2 (08:55→17:36)
[2016-08-16] MEDS ORDERED: POTASSIUM CHLORIDE 10 MEQ SR TABLET PO SCH (09:00)
--- NOTE | 2016-08-16 11:47 | IPNPDOC ---
Subjective Date Seen The patient was seen on 08/16/16. Subjective Chief Complaint/HPI The patient is a 71-year-old male admitted with a reason for visit of Chf Exacerbation;Copd Exacerbation. General: Denies: Chills, Night Sweats Constitutional: Denies: Chills, Fever Eyes: Denies: Pain, Vision change ENT: Denies: Ear Pain, Head Aches Skin: Denies: Lesions, Rash Pulmonary: Denies: Cough, Dyspnea Cardiovascular: Denies: Chest Pain, Palpitations Gastrointestinal: Denies: Nausea, Vomiting Genitourinary: Denies: Dysuria, Frequency Hematologic: Denies: Bleeding Excessively, Bruising Objective Physical Examination General Exam: Positive: Alert, Cooperative ENT Exam: Positive: Atraumatic, Mucous membr. moist/pink Chest Exam: Positive: Diminished, Wheezing Heart Exam: Positive: Normal S1, Normal S2, Tachycardic Abdomen Exam: Positive: Soft, Negative: Tenderness Extremity Exam: Negative: Swelling, Tenderness Assessment /Plan Plan/VTE VTE Prophylaxis Ordered?: Yes Plan Hypoxia 2/2 Acute Decompensated Diastolic CHF exacerbation We will continue IV Lasix 80 mg BID. Monitor Daily Weights Strict I/Os Patient's respiratory distress significantly improved with diuresis Supplemental oxygen down-titrated to the patient's baseline of 4L overnight We will continue to monitor the patient's respiratory status Acute kidney injury due to CHF exacerbation. Serum Creatinine has improved with diuresis, Serum Cr: 2.1-->1.6 (1.6 is his baseline) We will continue with diuresis for now with IV diuretics We will continue to monitor the patient's renal function Chronic obstructive pulmonary disease (COPD),stable. Continue with Advair, Spiriva, as-needed albuterol nebulizers and prednisone 5 mg daily Transaminitis, Coagulopathy possibly 2/2 Congestive Hepatopathy due to Decompensated CHF LFT's, INR noted Hepatitis Panel ordered U/S of the Liver ordered Cont to monitor LFTs, INR Coagulopathy possibly 2/2 Congestive Hepatopathy 2/2 Decompensated CHF. Will Hold Pradaxa for now, continue when INR <2 Atrial fibrillation, rate is controlled. Continue with diltiazem and metoprolol. The patient's INR is above 2 this AM Will hold Pradaxa for now Gastroesophageal reflux disease (GERD). Continue with proton pump inhibitor (PPI). Hyperlipidemia. Continue with atorvastatin. Hypertension Continue with metoprolol and diltiazem. Severe pulmonary hypertension with cor pulmonale Cont with Diuresis Deep venous thrombosis (DVT) prophylaxis Already on Anticoagulation at baseline, with elevated INR VS, I&O, 24H, Fishbone Vital Signs/I&O Vital Signs Date Time Temp Pulse Resp B/P Pulse Ox O2 Delivery O2 Flow Rate FiO2 08/16/16 08:54 103 123/74 08/16/16 08:01 Nasal Cannula 3.0 08/16/16 08:00 96.5 18 90 08/15/16 20:00 40 I&O- Last 24 Hours up to 6 AM 08/16/16 06:00 Intake Total 300 ml Output Total 1500 ml Balance -1200 ml Laboratory Data 24H LABS Laboratory Tests 2 08/15/16 14:08: Activated Partial Thromboplast Time 65.5H, Anion Gap 14, B-Type Natriuretic Peptide 3460H, White Blood Count 11.6H, Red Blood Count 4.78, Hemoglobin 14.2, Hematocrit 45.3, Mean Corpuscular Volume 94.6, Mean Corpuscular Hemoglobin 29.7 , Mean Corpuscular Hemoglobin Concent 31.4L, Red Cell Distribution Width 17.4H, Platelet Count 175, Neutrophils (%) (Auto) 81.7H, Lymphocytes (%) (Auto) 7.8L, Monocytes (%) (Auto) 7.6H, Eosinophils (%) (Auto) 0.9, Basophils (%) (Auto) 0.1 , Neutrophils # (Auto) 9.5H, Lymphocytes # (Auto) 1.1L, Monocytes # (Auto) 0.9H , Eosinophils # (Auto) 0.1, Basophils # (Auto) 0.0, Blood Urea Nitrogen 66H, Creatinine 2.16H, Sodium Level 137, Potassium Level 5.2H, Chloride Level 102, Carbon Dioxide Level 21, Calcium Level 8.7L, Total Creatine Kinase 230, Creatine Kinase MB 7.2H, Creatine Kinase MB Relative Index 3.13, Glomerular Filtration Rate 32.3L, Large Unclassified Cells # 0.2, Large Unclassified Cells % 1.9, Prothromb Time International Ratio 3.04, Prothrombin Time 31.5H, Troponin I 0.06 08/15/16 14:10: D-Dimer, Quantitative 380.3 08/15/16 14:13: Arterial Blood pH 7.470H, Arterial Blood Partial Pressure CO2 20.2L, Arterial Blood Partial Pressure O2 57.1L, Arterial Blood Total CO2 15.0L, Arterial Blood HCO3 14.4L, Arterial Blood Base Excess -6.7L, Arterial Blood Oxygen Saturation 88.9L, Blood Gas Bicarbonate Standard 18.9L, Oxygen Delivery Device NASAL DOROTHY 08/16/16 05:14: Activated Partial Thromboplast Time 54.7H, Anion Gap 14, B-Type Natriuretic Peptide 2510H, White Blood Count 8.6, Red Blood Count 4.56, Hemoglobin 13.3L, Hematocrit 41.7L, Mean Corpuscular Volume 91.4, Mean Corpuscular Hemoglobin 29.1 , Mean Corpuscular Hemoglobin Concent 31.9L, Red Cell Distribution Width 17.1H, Platelet Count 173, Neutrophils (%) (Auto) 89.6H, Lymphocytes (%) (Auto) 6.0L, Monocytes (%) (Auto) 3.3, Eosinophils (%) (Auto) 0.2, Basophils (%) (Auto) 0.2, Neutrophils # (Auto) 7.7, Lymphocytes # (Auto) 0.5L, Monocytes # (Auto) 0.3, Eosinophils # (Auto) 0.0, Basophils # (Auto) 0.0, Blood Urea Nitrogen 67H, Creatinine 1.65H, Sodium Level 143, Potassium Level 3.8#, Chloride Level 107, Carbon Dioxide Level 22, Calcium Level 8.2L, Glomerular Filtration Rate 44.1, Large Unclassified Cells # 0.1, Large Unclassified Cells % 0.8, Prothromb Time International Ratio 2.53, Prothrombin Time 27.3H, Aspartate Amino Transf (AST/ SGOT) 256H, Alanine Aminotransferase (ALT/SGPT) 393H, Alkaline Phosphatase 162H , Total Bilirubin 2.7H, Total Protein 6.2L, Albumin 3.2, Albumin/Globulin Ratio 1.07, Magnesium Level 2.6H CBC/BMP Laboratory Tests 08/15/16 14:08 Calcium Level 8.7 L, Total Creatine Kinase 230, Red Blood Count 4.78, Mean Corpuscular Volume 94.6, Mean Corpuscular Hemoglobin 29.7, Mean Corpuscular Hemoglobin Concent 31.4 L, Red Cell Distribution Width 17.4 H, Neutrophils (%) ( Auto) 81.7 H, Lymphocytes (%) (Auto) 7.8 L, Monocytes (%) (Auto) 7.6 H, Eosinophils (%) (Auto) 0.9, Basophils (%) (Auto) 0.1, Neutrophils # (Auto) 9.5 H , Lymphocytes # (Auto) 1.1 L, Monocytes # (Auto) 0.9 H, Eosinophils # (Auto) 0.1 , Basophils # (Auto) 0.0 08/16/16 05:14 Calcium Level 8.2 L, Red Blood Count 4.56, Mean Corpuscular Volume 91.4, Mean Corpuscular Hemoglobin 29.1, Mean Corpuscular Hemoglobin Concent 31.9 L, Red Cell Distribution Width 17.1 H, Neutrophils (%) (Auto) 89.6 H, Lymphocytes (%) ( Auto) 6.0 L, Monocytes (%) (Auto) 3.3, Eosinophils (%) (Auto) 0.2, Basophils (% ) (Auto) 0.2, Neutrophils # (Auto) 7.7, Lymphocytes # (Auto) 0.5 L, Monocytes # (Auto) 0.3, Eosinophils # (Auto) 0.0, Basophils # (Auto) 0.0, Aspartate Amino Transf (AST/SGOT) 256 H, Alanine Aminotransferase (ALT/SGPT) 393 H, Alkaline Phosphatase 162 H, Total Bilirubin 2.7 H, Total Protein 6.2 L, Albumin 3.2 Microbiology Microbiology 08/15/16 Influenza Virus Type A Antigen - Final, Complete 08/15/16 Influenza Virus Type B Antigen - Final, Complete RUDOLPH KEYS MD Aug 16, 2016 11:47
[2016-08-16 12:00] VITALS: BP 134/70
[2016-08-16 16:00] VITALS: BP 124/78
[2016-08-16 20:00] VITALS: BP 131/84
[2016-08-16] MEDS: ATORVASTATIN 10 MG TAB PO SCH (20:13)
[2016-08-17] VITALS: BP 146/72
[2016-08-17 04:00] VITALS: BP 127/5
[2016-08-17 06:13] LABS: EOS % 0.1 % (0.0-3.0); LARGE UNSTAINED CELL # 0.2 K/mm3 (0.0-0.4); LARGE UNSTAINED CELL % 1.3 % (0.0-4.0); LYMPH # 0.4 K/mm3 (1.5-4.5); LYMPH % 2.6 % (24.0-44.0); MEAN CORPUSCULAR HEMOGLOBIN 29.4 pg (27.0-33.0); MEAN CORPUSCULAR HGB CONC 32.1 g/dl (32.0-36.5); MEAN CORPUSCULAR VOLUME 91.6 fl (80.0-96.0); MONO # 0.7 K/mm3 (0.0-0.8); MONO % 4.4 % (0.0-5.0); NEUTROPHILS # 13.5 K/mm3 (1.8-7.7); NEUTROPHILS % 91.6 % (36.0-66.0); PLATELET COUNT, AUTOMATED 155 k/mm3 (150-450); RED CELL DISTRIBUTION WIDTH 17.2 % (11.5-14.5); WHITE BLOOD COUNT 14.7 K/mm3 (4.0-10.0)
[2016-08-17 06:20] LABS: INR 1.73
[2016-08-17 06:34] LABS: ALBUMIN 3.3 GM/DL (3.2-5.2); ALBUMIN/GLOBULIN RATIO 1.43 (1.00-1.93); BILIRUBIN,TOTAL 3.1 MG/DL (0.2-1.0); CALCIUM LEVEL 8.2 MG/DL (8.8-10.2); CREATININE FOR GFR 1.4 MG/DL (0.70-1.30); GLOMERULAR FILTRATION RATE 53.3 (>42); MAGNESIUM LEVEL 2.7 MG/DL (1.8-2.4); POTASSIUM SERUM 3.2 MEQ/L (3.5-5.1); TOTAL PROTEIN 5.6 GM/DL (6.4-8.2)
--- NOTE | 2016-08-17 06:40 | REP ---
Hepatic sonography: History: Elevated liver enzymes. Findings: Scanning through the right upper quadrant demonstrates a normal size thin-walled gallbladder containing some sludge but no visible stone. Common bile duct is normal measuring 0.3 cm in greatest diameter. No focal liver lesion is seen. Pancreas is obscured by abdominal gas. There is no evidence of ascites or right renal abnormality. The right kidney measures 10.3 x 4.1 x 5.1 cm. Impression: Sludge in the gallbladder lumen. No stones seen. Otherwise negative right upper quadrant sonography. Signed by Anibal Mandujano MD 08/17/2016 08:29 A
[2016-08-17] MEDS ORDERED: POTASSIUM CHLORIDE 10 MEQ SR TABLET PO ONE (07:30)
[2016-08-17 08:00] VITALS: BP 155/86
[2016-08-17] MEDS: TIOTROPIUM INHALER/CAPSULE (SPIRIVA) INH SCH (08:15)
[2016-08-17] MEDS: ADVAIR HFA 230/21 INHALER INH SCH ×2 (08:15→21:35)
[2016-08-17] MEDS: FUROSEMIDE 100 MG/10 ML VIAL (J1940) IV SCH (08:42)
[2016-08-17] MEDS: PANTOPRAZOLE 40MG TAB (PROTONIX) PO SCH (08:44)
[2016-08-17] MEDS: diltiaZEM **CD** 180 MG CAP PO SCH (08:44)
[2016-08-17] MEDS: predniSONE 5 MG TAB PO SCH (08:45)
[2016-08-17] MEDS: SENOKOT S TAB PO SCH ×2 (08:45→21:00)
[2016-08-17] MEDS: METOPROLOL SUCC (TopROL XL) 100MG *XL* TAB PO SCH (08:45)
[2016-08-17 12:00] VITALS: BP 115/73
--- NOTE | 2016-08-17 15:37 | IPNPDOC ---
Text Note Date of Service The patient was seen on 08/17/16. NOTE Subjective: Patient is a 71 year old male with a PMHx of COPD (on 3-4 L of O2 at home), Severe Pulm HTN, Diastolic CHF, A fib, HTN, Hx of Cardiac arrest, DLP, and Chronic steroid dependence who presented to the ER with complaints of shortness of brath. He had a imaging which was consistent with vascular congestion. He was admitted for Diastolic CHF exacerbation. He was recently treated as [facility] and discharge on 08/13 for CHF exacerbation. Patient was seen and examined and bedside. He denied any problems. Objective: Vitals (See below) General: Lying in bed, no acute distress, comfortable, AAOx3 HEENT: NC, AT CVS: Irregularly irregular, +S1S2 Lungs: Fair air entry b/l, -w/r/r Abdomen: Soft, ND, NT, +BSx4 Extremities: +PPx4, -Edema, -Calf tenderness Assessment and plan: 1. Acute on Chronic Hypoxic respiratory failure - likely 2/2 diastolic CHF exacerbation - presented with shortness of breath requiring more supplemental oxygen - physical now reveals no crackles, no JVD or edema - breathing has improved - CXr consistent with vascular congestion - c/w supplemental oxygen and titrate down to baseline - c/w Lasix (will change from IV to PO) 2. Acute kidney injury - likely 2/2 cardiorenal syndrome - Cr continues to trend down - Baseline of 1.6 - will change IV to PO Lasix 3. COPD - no evidence of exacerbation - c/w advair, spiriva, albuterol and prednisone 5mg 4. Transaminitis - likely 2/2 congestive hepatopathy - 2/2 CHF exacerbation - trending down - will continue to monitor 5. Coagulopathy - likely 2/2 congestive hepatopathy - 2/2 CHF exacerbation - INR elevated initially; trending down - will continue to follow 6. Atrial fibrillation - Remains rate controlled - c/w Diltiazem and metoprolol - will restart Pradaxa today 7. GERD - c/w PPI 8. DLP - c/w atorvastatin 9. HTN - c/w metoprolol and diltiazem 10. Pulmonary HTN 11. DVT prophylaxis - on full anticoagulation with Pradaxa VS,Fishbone, I+O VS, Fishbone, I+O Laboratory Tests 08/17/16 05:43 Calcium Level 8.2 L, Aspartate Amino Transf (AST/SGOT) 192 H, Alanine Aminotransferase (ALT/SGPT) 380 H, Alkaline Phosphatase 172 H, Total Bilirubin 3.1 H, Total Protein 5.6 L, Albumin 3.3, Red Blood Count 4.47, Mean Corpuscular Volume 91.6, Mean Corpuscular Hemoglobin 29.4, Mean Corpuscular Hemoglobin Concent 32.1, Red Cell Distribution Width 17.2 H, Neutrophils (%) (Auto) 91.6 H , Lymphocytes (%) (Auto) 2.6 L, Monocytes (%) (Auto) 4.4, Eosinophils (%) (Auto ) 0.1, Basophils (%) (Auto) 0.0, Neutrophils # (Auto) 13.5 H, Lymphocytes # ( Auto) 0.4 L, Monocytes # (Auto) 0.7, Eosinophils # (Auto) 0.0, Basophils # (Auto ) 0.0 Vital Signs Date Time Temp Pulse Resp B/P Pulse Ox O2 Delivery O2 Flow Rate FiO2 08/17/16 12:00 97.2 97 18 115/73 96 Nasal Cannula 3.0 08/15/16 20:00 40 I&O- Last 24 Hours up to 6 AM 08/17/16 06:00 Intake Total 480 ml Output Total 1725 ml Balance -1245 ml IVÁN ALVARADO MD Aug 17, 2016 15:37
[2016-08-17 16:00] VITALS: BP 133/78
[2016-08-17] MEDS: FUROSEMIDE 20 MG TAB PO SCH (17:45)
--- NOTE | 2016-08-17 18:57 | EDDOCDS ---
Physician Documentation [facility] Name: Sanjay Saeed Age: 71 yrs Sex: Male : 1945 Arrival Date: 08/15/2016 Time: 13:50 Bed 12 Private MD: Disposition: 08/15/16 16:04 Hospitalization ordered by Ekta Payne for Inpatient Admission. Preliminary diagnosis is Acute systolic (congestive) heart failure. - Bed requested for PCU. - Status is Inpatient Admission. pml - Condition is Stable. - Problem is new. - Symptoms have improved. Historical: - Allergies: IV Dye; Norvasc; Prilosec; - Home Meds: 1. diltiazem HCl 180 mg Oral cpER 1 cap once daily 2. prednisone 5 mg Oral tab once daily 3. Pradaxa 150 mg oral cap 1 cap 2 times per day 4. Advair Diskus 230-21 mcg/act 2puffs BID Inhl 5. levalbuterol HCl 1.25 mg/3 mL inhalation nebu 3 mL every 8 hours 6. Klor-Con 10 10 mEq Oral TbER 1 tab once daily 7. furosemide 20 mg Oral tab 1 tab once daily 8. pantoprazole 40 mg oral TbEC 1 tab once daily 9. atorvastatin 10 mg oral tab 1 tab once daily 10. ProAir HFA 90 mcg/actuation inhalation HFAA 2 puffs every 6 hours 11. Spiriva with HandiHaler 18 mcg Inhl CpDv 1 cap once daily 12. metoprolol succinate 100 mg Tb24 1 tab once daily - PMHx: Atrial Fib; Cardiac arrestfrom respiratory [id number]; COPD; GERD; High Cholesterol; Hypertension; Pulmonary Hypertension; Renal Failure w/o Dialysis; - PSHx: Cataract Surgery- Bilateral; Appendectomy; - Social history: Smoking status: Patient states former smoker of tobacco. No barriers to communication noted, The patient speaks fluent [place], Speaks appropriately for age. - Family history: Not pertinent. - : The pt / caregiver states he / she is on anticoagulants: Pradaxa (Dabigatran) Home medication list is obtained from the patient. - Exposure Risk Screening:: None identified. Vital Signs: 08/15 13:56 BP 99 / 69 (auto/); pml 14:00 Pulse 68 MON; Pulse Ox 82% ; pml 14:04 BP 99 / 69; Pulse 77; Resp 18; Temp 96.8(TE); Pulse Ox 82% on 4 lpm NC; Weight 63.5 kg pml / 139.99 lbs (R); Height 5 ft. 10 in. (177.80 cm) (R); Pain 0/10; 14:11 Pulse 66 MON; Pulse Ox 83% ; pml 14:12 BP 113 / 65 (auto/); pml 14:26 Pulse 62 MON; Pulse Ox 90% ; pml 14:27 BP 120 / 59 (auto/); pml 14:57 BP 124 / 61 (auto/); pml 15:04 Pulse 68 MON; Pulse Ox 100% ; pml 15:12 BP 124 / 75 (auto/); pml 15:12 Pulse 70 MON; Pulse Ox 96% ; pml 15:27 BP 124 / 72 (auto/); pml 15:28 Pulse 70 MON; Pulse Ox 91% ; pml 15:42 BP 185 / 70 (auto/); pml 15:43 Pulse 70 MON; Pulse Ox 89% ; pml 15:57 BP 127 / 74 (auto/); pml 15:58 Pulse 78 MON; Pulse Ox 86% ; pml 16:12 BP 148 / 72 (auto/); pml 16:13 Pulse 70 MON; Pulse Ox 90% ; pml 16:27 Pulse 74 MON; Pulse Ox 95% ; pml 16:27 BP 115 / 55 (auto/); pml 16:42 Pulse 72 MON; Pulse Ox 93% ; pml 16:42 BP 116 / 60 (auto/); pml 16:57 Pulse 76 MON; Pulse Ox 94% ; pml 16:57 BP 133 / 72 (auto/); pml 17:54 BP 127 / 71; Pulse 83; Resp 20; Temp 97.8; Pulse Ox 93% on 40% Venturi mask; Pain 0/10; pml 14:04 Body Mass Index 20.09 (63.50 kg, 177.80 cm) pml MDM: 14:03 Acid Retort Operator/Pulse Ox/q 30 min VS ordered. br1 14:03 IV Saline Lock ordered. br1 14:03 Rhythm Strip to chart ordered. br1 14:03 Undress patient appropriately for examination ordered. br1 14:03 B-Type Natiuretic Peptide Ordered. EDMS 14:03 Basic Metabolic Profile Ordered. EDMS 14:04 CBC with Diff Ordered. EDMS 14:04 Cardiac Injury Profile Ordered. EDMS 14:04 Troponin Ordered. EDMS 14:04 ECG WITH READING ER PHYS+CARDIAG ordered. EDMS 14:05 PT/INR Ordered. EDMS 14:05 PTT Ordered. EDMS 14:05 Chest, 1 View Ordered. EDMS 14:05 Oxygen at 4L/Min NC or Home dosage ordered. br1 14:05 Call Respiratory ordered. br1 14:06 -Arterial Blood Gas Ordered. EDMS 14:06 Albuterol-Ipratropium 3 ml Inhalation once ordered. br1 14:24 Call Respiratory complete. deg 14:26 CBC with Diff Reviewed. br1 14:26 PT/INR Reviewed. br1 14:26 PTT Reviewed. br1 14:26 -Arterial Blood Gas Reviewed. br1 14:29 Solu-MEDROL 125 mg IVP once ordered. br1 14:29 Albuterol-Ipratropium 3 ml Inhalation once ordered. br1 14:29 D-Dimer Quant Ordered. EDMS 14:38 CT Chest Without Contrast Ordered. EDMS 14:58 B-Type Natiuretic Peptide Reviewed. br1 14:58 D-Dimer Quant Reviewed. br1 14:58 Chest, 1 View Reviewed. br1 14:59 Furosemide 40 mg IVP once ordered. br1 15:00 BED REQUEST+ADM ordered. EDMS 15:40 Basic Metabolic Profile Reviewed. br1 15:40 Cardiac Injury Profile Reviewed. br1 15:40 Troponin Reviewed. br1 15:40 CT Chest Without Contrast Reviewed. br1 16:02 -Influenza A&B Rapid Antigen - Nose Ordered. EDMS 16:16 Financial registration complete. zo 16:21 Admission / Observation Status ordered. EDMS 16:21 2 GRAM SODIUM DIET ordered. EDMS 16:21 [facility] [place] was scanned into [employer] and attached to record. zo 16:54 PHYSICAL THERAPY EVAL & TREAT ordered. EDMS 08/16 09:55 T-Sheet-- Draft Copy was scanned into [employer] and attached to record. gb 14:53 ECG/EKG was scanned into [employer] and attached to record. gb 14:53 Radiology Report was scanned into [employer] and attached to record. gb 15:42 ECG/EKG was scanned into [employer] and attached to record. gb Administered Medications: 08/15 14:20 Drug: Albuterol-Ipratropium 3 ml [ipratropium-albuterol 0.5 mg-3 mg(2.5 mg base)/3 mL lb nebulization soln (3 mL)] Route: Inhalation; 14:35 Drug: Albuterol-Ipratropium 3 ml [ipratropium-albuterol 0.5 mg-3 mg(2.5 mg base)/3 mL km6 nebulization soln (3 mL)] Route: Inhalation; 14:37 Drug: Solu-MEDROL 125 mg [Solu-Medrol 500 mg intravenous solution (125 mg)] Route: IVP; pml Site: right antecubital; 15:08 Drug: Furosemide 40 mg [furosemide 10 mg/mL injection solution (4 mL)] Route: IVP; pml Site: right antecubital; Signatures: Dispatcher [employer] EDMS Marycruz Lennon, Production [employer] Unit deg Teresa Denny, Reg Reg gb Lisa Boyce Brian, MD MD br1 Eliz Fraga RN RN [facility] Michael Perez RN RN [facility] Sharri Garcia Renata Gipson [phone] The chart was reviewed and I authenticate all verbal orders and agree with the evaluation and treatment provided.Attachments: 16:21 [facility] Payment Agreement zo 08/16 09:55 T-Sheet-- Draft Copy gb 14:53 ECG/EKG gb 15:42 ECG/EKG gb Chart Complete MTDD
--- NOTE | 2016-08-17 18:57 | EDDOCDS ---
Nurse's Notes [facility] Name: Sanjay Saeed Age: 71 yrs Sex: Male : 1945 Arrival Date: 08/15/2016 Time: 13:50 Bed 12 Private MD: Diagnosis: Acute systolic (congestive) heart failure Presentation: 08/15 13:54 Presenting complaint: EMS states: admitted to [facility] last week for unknown reason and pml discharged on Tuesday - shortness of breath on exertion which is reportedly new. Adult Sepsis Screening: The patient does not have new or worsening altered mentation. Patient's respiratory rate is less than 22. Systolic blood pressure is greater than 100. Patient has a qSOFA score of 0- Negative Sepsis Screen. Suicide/Homicide risk assessment- the patient denies having any suicidal and/or homicidal ideations and does not present with any other emotional, behavioral or mental health complaints. Status: Patient is not a telephone answering service operator or dependent. Transition of care: patient was not received from another setting of care. 13:54 Acuity: JEREMY Level 3 pml 13:54 Method Of Arrival: Ambulance pml Triage Assessment: 13:59 General: Appears in no apparent distress, Behavior is appropriate for age, cooperative. pml Pain: Location: diaphragm Pain currently is 5 out of 10 on a pain scale. The patient is triaged at the bedside. See Assessment in Nurses Notes section of ED record. Neurological: Level of Consciousness is awake, alert, Oriented to person, place, time. Cardiovascular: Capillary refill < 3 seconds Rhythm is atrial fibrillation. 14:05 Respiratory: Onset: The symptoms/episode began/occurred gradually, Airway is patent pml Respiratory effort is unlabored, Respiratory pattern is regular, Breath sounds are diminished bilaterally. Respiratory: Reports shortness of breath on exertion since 1 month ago. GI: Abdomen is non- distended. Derm: Skin is pink, warm & dry. Bruising that is dark purple, bilateral arms. Historical: - Allergies: IV Dye; Norvasc; Prilosec; - Home Meds: 1. diltiazem HCl 180 mg Oral cpER 1 cap once daily 2. prednisone 5 mg Oral tab once daily 3. Pradaxa 150 mg oral cap 1 cap 2 times per day 4. Advair Diskus 230-21 mcg/act 2puffs BID Inhl 5. levalbuterol HCl 1.25 mg/3 mL inhalation nebu 3 mL every 8 hours 6. Klor-Con 10 10 mEq Oral TbER 1 tab once daily 7. furosemide 20 mg Oral tab 1 tab once daily 8. pantoprazole 40 mg oral TbEC 1 tab once daily 9. atorvastatin 10 mg oral tab 1 tab once daily 10. ProAir HFA 90 mcg/actuation inhalation HFAA 2 puffs every 6 hours 11. Spiriva with HandiHaler 18 mcg Inhl CpDv 1 cap once daily 12. metoprolol succinate 100 mg Tb24 1 tab once daily - PMHx: Atrial Fib; Cardiac arrestfrom respiratory [id number]; COPD; GERD; High Cholesterol; Hypertension; Pulmonary Hypertension; Renal Failure w/o Dialysis; - PSHx: Cataract Surgery- Bilateral; Appendectomy; - Social history: Smoking status: Patient states former smoker of tobacco. No barriers to communication noted, The patient speaks fluent Indonesian, Speaks appropriately for age. - Family history: Not pertinent. - : The pt / caregiver states he / she is on anticoagulants: Pradaxa (Dabigatran) Home medication list is obtained from the patient. - Exposure Risk Screening:: None identified. Screenin:06 Screening information is obtained from the patient. Fall risk: At risk due to pml immobility. Assistance ADL's: requires no assistance with activities of daily living. Abuse/DV Screen: The patient / caregiver reports he/she is: not in a situation that causes fear, pain or injury. Nutritional screening: No deficits noted. Advance Directives: There is no active DNR order. home support is adequate. Assessment: 14:06 General: see triage note. pml 14:16 General: Spo2 noted to remain in mid 80s with 6lpm. respiratory at bedside with angelic pml in progress. will trial venti mask after neb completed . 14:37 General: spo2 improved to 90% with 40% venti mask in place. pml 15:08 General: Appears in no apparent distress, Behavior is appropriate for age, cooperative. pml Neurological: Level of Consciousness is awake, alert, Oriented to person, place, time. Cardiovascular: Capillary refill < 3 seconds Rhythm is atrial fibrillation. Respiratory: Airway is patent Respiratory effort is even, unlabored. Derm: Skin is pink, warm & dry. 16:00 General: resting on stretcher, Spo2 decreased to 86%, pt placed on 40% Venti again with pml positive effect. 17:10 General: Appears in no apparent distress, Behavior is appropriate for age, cooperative. pml Neurological: Level of Consciousness is awake, alert, Oriented to person, place, time. Cardiovascular: Capillary refill < 3 seconds Rhythm is atrial fibrillation. Respiratory: Airway is patent Respiratory effort is even, unlabored. Derm: Skin is pink, warm & dry. 17:52 General: Appears in no apparent distress, Behavior is appropriate for age, cooperative. pml 17:52 Neurological: Level of Consciousness is awake, alert, Oriented to person, place, time. pml Cardiovascular: Capillary refill < 3 seconds Rhythm is atrial fibrillation. Respiratory: Airway is patent Respiratory effort is even, unlabored. GI: Abdomen is non- distended. Derm: Skin is pink, warm & dry. Vital Signs: 13:56 BP 99 / 69 (auto/); pml 14:00 Pulse 68 MON; Pulse Ox 82% ; pml 14:04 BP 99 / 69; Pulse 77; Resp 18; Temp 96.8(TE); Pulse Ox 82% on 4 lpm NC; Weight 63.5 kg pml (R); Height 5 ft. 10 in. (177.80 cm) (R); Pain 0/10; 14:11 Pulse 66 MON; Pulse Ox 83% ; pml 14:12 BP 113 / 65 (auto/); pml 14:26 Pulse 62 MON; Pulse Ox 90% ; pml 14:27 BP 120 / 59 (auto/); pml 14:57 BP 124 / 61 (auto/); pml 15:04 Pulse 68 MON; Pulse Ox 100% ; pml 15:12 BP 124 / 75 (auto/); pml 15:12 Pulse 70 MON; Pulse Ox 96% ; pml 15:27 BP 124 / 72 (auto/); pml 15:28 Pulse 70 MON; Pulse Ox 91% ; pml 15:42 BP 185 / 70 (auto/); pml 15:43 Pulse 70 MON; Pulse Ox 89% ; pml 15:57 BP 127 / 74 (auto/); pml 15:58 Pulse 78 MON; Pulse Ox 86% ; pml 16:12 BP 148 / 72 (auto/); pml 16:13 Pulse 70 MON; Pulse Ox 90% ; pml 16:27 Pulse 74 MON; Pulse Ox 95% ; pml 16:27 BP 115 / 55 (auto/); pml 16:42 Pulse 72 MON; Pulse Ox 93% ; pml 16:42 BP 116 / 60 (auto/); pml 16:57 Pulse 76 MON; Pulse Ox 94% ; pml 16:57 BP 133 / 72 (auto/); pml 17:54 BP 127 / 71; Pulse 83; Resp 20; Temp 97.8; Pulse Ox 93% on 40% Venturi mask; Pain 0/10; pml 14:04 Body Mass Index 20.09 (63.50 kg, 177.80 cm) [facility] Vitals: 14:05 Log In Time N/A - ambulance arrival. [facility] ED Course: 13:51 Patient visited by Marycruz Lennon, Admin Dir. deg 13:51 Eliz Fraga,RN is Primary Nurse. deg 13:51 Patient moved to Waiting deg 13:51 Patient moved to 12 deg 13:52 Alexander Tamez MD is Attending Physician. br1 13:56 Triage Initiated pml 14:03 Patient visited by Alexander Tamez MD. br1 14:06 The patient / caregiver is instructed regarding the plan of care and ED course. Patient pml has correct armband on for positive identification. Placed in gown. Bed in low position. Call light in reach. Side rails up X2. cartridge filler on. Pulse ox on. NIBP on. 14:06 O2 via nasal cannula \T\ 6L/min. pml 14:07 Inserted peripheral IV: 20gauge IV in right antecubital area and blood collected. pml Patient tolerated the procedure well. by AMILCAR Quiroga. 14:12 Patient visited by Angelo Em. jml1 14:12 EKG done. (by ED staff). Reviewed by Alexander Tamez MD. jml1 14:18 Patient visited by Eliz Fraga,AMILCAR. pml 14:19 -Arterial Blood Gas Sent. lb 14:30 Patient visited by Eliz Fraga,AMILCAR. pml 14:37 O2 via Venturi mask \T\ 12L/min - 40%. pml 14:38 Patient visited by Eliz Fraga RN. pml 14:47 Chest, 1 View Returned. EDMS 15:09 Patient visited by Eliz Fraga RN. pml 15:09 O2 via Venturi mask \T\ 6L/min - 30%. pml 15:25 CT Chest Without Contrast Returned. EDMS 15:45 Patient visited by Alexander Tamez MD. br1 16:04 Ekta Payne is Hospitalizing Provider. br1 16:21 [place] [place] was scanned into [employer] and attached to record. zo 17:52 No procedures done that require assistance. pml 08/16 09:55 T-Sheet-- Draft Copy was scanned into [employer] and attached to record. gb 14:53 ECG/EKG was scanned into [employer] and attached to record. gb 14:53 Radiology Report was scanned into [employer] and attached to record. gb 15:42 ECG/EKG was scanned into [employer] and attached to record. gb Administered Medications: 08/15 14:20 Drug: Albuterol-Ipratropium 3 ml [ipratropium-albuterol 0.5 mg-3 mg(2.5 mg base)/3 mL lb nebulization soln (3 mL)] Route: Inhalation; 14:35 Drug: Albuterol-Ipratropium 3 ml [ipratropium-albuterol 0.5 mg-3 mg(2.5 mg base)/3 mL km6 nebulization soln (3 mL)] Route: Inhalation; 14:37 Drug: Solu-MEDROL 125 mg [Solu-Medrol 500 mg intravenous solution (125 mg)] Route: IVP; pml Site: right antecubital; 15:08 Drug: Furosemide 40 mg [furosemide 10 mg/mL injection solution (4 mL)] Route: IVP; pml Site: right antecubital; Output: 17:54 Urine: 225.00ml (Voided); Total: 225.00ml. pml RT: 14:20 ABG's drawn from right radial artery allens test done and positive pressure held for 5 lb minutes no bleeding noted pressure bandage applied specimen sent pt. tolerated well. 14:20 Initial Med Neb Given as ordered Patient was instructed and evaluated on procedure lb Patient tolerated procedure well without adverse effect. Respiratory: Breath sounds are diminished bilaterally. 14:35 Subsequent Med Neb Given as ordered Patient tolerated procedure well without adverse km6 effect. Respiratory: Breath sounds are diminished bilaterally. Order Results: Lab Order: B-Type Natiuretic Peptide; SPEC'M 08/15/16 14:08 Test: BRAIN NATRIURETIC PEPTIDE; Value: 3460; Range: <100; Abnormal: Above high normal; Units: PG/ML; Status: F Lab Order: Basic Metabolic Profile; SPEC08/15/16 14:08 Test: GLUCOSE, FASTING; Value: 152; Range: 83-110; Abnormal: Above high normal; Units: MG/DL; Status: F Test: BLOOD UREA NITROGEN; Value: 66; Range: 7-18; Abnormal: Above high normal; Units: MG/DL; Status: F Test: CREATININE FOR GFR; Value: 2.16; Range: 0.70-1.30; Abnormal: Above high normal; Units: MG/DL; Status: F Test: GLOMERULAR FILTRATION RATE; Value: 32.3; Range: >42; Abnormal: Below low normal; Status: F Test: SODIUM LEVEL; Value: 137; Range: 136-145; Units: MEQ/L; Status: F Test: POTASSIUM SERUM; Value: 5.2; Range: 3.5-5.1; Abnormal: Above high normal; Units: MEQ/L; Status: F Test: CHLORIDE LEVEL; Value: 102; Range: 98-107; Units: MEQ/L; Status: F Test: CARBON DIOXIDE LEVEL; Value: 21; Range: 21-32; Units: MEQ/L; Status: F Test: ANION GAP; Value: 14; Range: 8-16; Units: MEQ/L; Status: F Test: CALCIUM LEVEL; Value: 8.7; Range: 8.8-10.2; Abnormal: Below low normal; Units: MG/DL; Status: F Test Note: ; Units are mL/min/1.73 m2 Chronic Kidney Disease Staging per NKF: Stage I & II GFR >=60 Normal to Mildly Decreased Stage III GFR 30-59 Moderately Decreased Stage IV GFR 15-29 Severely Decreased Stage V GFR <15 Very Little GFR Left ESRD GFR <15 on CLIENT ENGAGEMENT MANAGER Lab Order: CBC with Diff; SPEC08/15/16 14:08 Test: WHITE BLOOD COUNT; Value: 11.6; Range: 4.0-10.0; Abnormal: Above high normal; Units: K/mm3; Status: F Test: RED BLOOD COUNT; Value: 4.78; Range: 4.30-6.10; Units: M/mm3; Status: F Test: HEMOGLOBIN; Value: 14.2; Range: 14.0-18.0; Units: g/dl; Status: F Test: HEMATOCRIT; Value: 45.3; Range: 42.0-52.0; Units: %; Status: F Test: MEAN CORPUSCULAR VOLUME; Value: 94.6; Range: 80.0-96.0; Units: fl; Status: F Test: MEAN CORPUSCULAR HEMOGLOBIN; Value: 29.7; Range: 27.0-33.0; Units: pg; Status: F Test: MEAN CORPUSCULAR HGB CONC; Value: 31.4; Range: 32.0-36.5; Abnormal: Below low normal; Units: g/dl; Status: F Test: RED CELL DISTRIBUTION WIDTH; Value: 17.4; Range: 11.5-14.5; Abnormal: Above high normal; Units: %; Status: F Test: PLATELET COUNT, AUTOMATED; Value: 175; Range: 150-450; Units: k/mm3; Status: F Test: NEUTROPHILS %; Value: 81.7; Range: 36.0-66.0; Abnormal: Above high normal; Units: %; Status: F Test: LYMPH %; Value: 7.8; Range: 24.0-44.0; Abnormal: Below low normal; Units: %; Status: F Test: MONO %; Value: 7.6; Range: 0.0-5.0; Abnormal: Above high normal; Units: %; Status: F Test: EOS %; Value: 0.9; Range: 0.0-3.0; Units: %; Status: F Test: BASO %; Value: 0.1; Range: 0.0-1.0; Units: %; Status: F Test: LARGE UNSTAINED CELL %; Value: 1.9; Range: 0.0-4.0; Units: %; Status: F Test: NEUTROPHILS #; Value: 9.5; Range: 1.8-7.7; Abnormal: Above high normal; Units: K/mm3; Status: F Test: LYMPH #; Value: 1.1; Range: 1.5-4.5; Abnormal: Below low normal; Units: K/mm3; Status: F Test: MONO #; Value: 0.9; Range: 0.0-0.8; Abnormal: Above high normal; Units: K/mm3; Status: F Test: EOS #; Value: 0.1; Range: 0.0-0.50; Units: K/mm3; Status: F Test: BASO #; Value: 0.0; Range: 0.0-0.2; Units: K/mm3; Status: F Test: LARGE UNSTAINED CELL #; Value: 0.2; Range: 0.0-0.4; Units: K/mm3; Status: F Lab Order: Cardiac Injury Profile; [facility] 08/15/16 14:08 Test: CPK CREATINE PHOSPHOKINASE; Value: 230; Range: 39-308; Units: U/L; Status: F Test: CK-MB VALUE MASS; Value: 7.2; Range: 0.0-3.6; Abnormal: Above high normal; Units: NG/ML; Status: F Test: MB/CK RELATIVE INDEX; Value: 3.13; Range: < OR =4; Status: F Test Note: ; DIAGNOSIS CRITERIA MMB ng/ml Relative Index (RI) NON-AMI < or = 5 N/A BANG [place]ONE > 5 < or = 4 AMI > 5 > 4 Lab Order: Troponin; [facility] 08/15/16 14:08 Test: TROPONIN I; Value: 0.06; Range: < 0.10; Units: NG/ML; Status: F Test Note: ; Troponin I Reference Interval for [employer] LOCI: 99th Percentile= 0.00-0.045 ng/ml Risk Stratification: <= 0.10 ng/ml Decreased Risk for Adverse Clinical Events. 0.10-1.50 ng/ml Increased Risk for Adverse Clinical Events. Evaluation of additional criterion and/or repeat testing in 2-6 hours is suggested to rule out myocardial damage. >= 1.50 ng/ml Indicative of Myocardial Injury. Lab Order: PT/INR; [facility] 08/15/16 14:08 Test: PROTHROMBIN TIME; Value: 31.5; Range: 12.3-14.5; Abnormal: Above high normal; Units: SECONDS; Status: F Test: INR; Value: 3.04; Status: F Test Note: ; THERAPUTIC HUMAN INR VALUES INDICATIONS NORMAL RANGES PROPHYLAXIS/TREATMENT OF: VENOUS THROMBOSIS 2.0-3.0 PULMONARY EMBOLISM 2.0-3.0 PREVENTION OF SYSTEMIC EMBOLISM FROM: TISSUE HEART VALVES 2.0-3.0 ACUTE MYOCARDIAL INFARCTION 2.0-3.0 VALVULAR HEART DISEASE 2.0-3.0 ATRIAL FIBRILLATION 2.0-3.0 MECHANICAL VALVES(HIGH RISK) 2.5-3.5 RECURRENT MYOCARDIAL INFARCTION 2.5-3.5 Lab Order: PTT; [facility] 08/15/16 14:08 Test: PARTIAL THROMBOPLASTIN TIME; Value: 65.5; Range: 26.6-37.1; Abnormal: Above high normal; Units: SECONDS; Status: F Lab Order: -Arterial Blood Gas; [facility] 08/15/16 14:13 Test: ABG pH (ARTERIAL); Value: 7.470; Range: 7.350-7.450; Abnormal: Above high normal; Units: UNITS; Status: F Test: ABG PARTIAL PRESSURE CO2; Value: 20.2; Range: 35.0-45.0; Abnormal: Below low normal; Units: mmHg; Status: F Test: ABG PARTIAL PRESSURE O2; Value: 57.1; Range: 75.0-100.0; Abnormal: Below low normal; Units: mmHg; Status: F Test: ABG TOTAL CO2; Value: 15.0; Range: 23.0-31.0; Abnormal: Below low normal; Units: MEQ/L; Status: F Test: ABG HCO3; Value: 14.4; Range: 22.0-26.0; Abnormal: Below low normal; Units: MEQ/L; Status: F Test: ABG BASE EXCESS; Value: -6.7; Range: -2.0-2.0; Abnormal: Below low normal; Status: F Test: ABG STANDARD HCO3; Value: 18.9; Range: 22.0-26.0; Abnormal: Below low normal; Units: MEQ/L; Status: F Test: ABG O2 SATURATION; Value: 88.9; Range: 95.0-99.0; Abnormal: Below low normal; Units: %; Status: F Test: ABG DEVICE; Value: NASAL DOROTHY; Status: F Lab Order: D-Dimer Quant; [facility] 08/15/16 14:10 Test: D-DIMER QUANT; Value: 380.3; Range: <500; Units: ng/ml; Status: F Radiology Order: Chest, 1 View Test: Chest, 1 View REASON FOR EXAMINATION: Shortness of Breath; Clinical: Shortness of breath.; ; Comparison: 03/26/2016.; ; Findings:; Mediastinum and cardiac silhouette are stable with mild cardiomegaly again; suggested. Mild pulmonary vascular congestion cannot be excluded. No focal; consolidation, effusion, or pneumothorax. Skeletal structures stable.; ; Impression:; Mild stable cardiomegaly.; Cannot exclude mild pulmonary vascular congestion.; ; ; Signed by; Rich Vargas MD 08/15/2016 02:30 P; Radiology Order: CT Chest Without Contrast Test: CT Chest Without Contrast REASON FOR EXAMINATION: Shortness of Breath; Clinical: Shortness of breath.; ; Comparison: 11/14/2015.; ; Findings:; Advanced diffuse emphysematous changes are appreciated areas of peripheral; fibrosis and scattered scarring. Small amount of trapped fluid is identified; within the left major fissure and minimal thickening to the right major fissure; is appreciated small areas of opacity with in the superior right lower lobe may; reflect sequelae and residual changes from prior infiltrate which has otherwise; essentially resolved when compared to 11/14/2015. No significant acute area of; consolidation, pleural effusion or pneumothorax appreciated. Mild chronic; pulmonary vascular congestion and cardiomegaly is appreciated along with; atherosclerotic changes to the thoracic aorta and coronary arteries. No; significant adenopathy. Skeletal structures demonstrate osteopenia and; degenerative changes.; ; Impression:; Advanced emphysematous changes with peripheral fibrosis and scattered scarring; and scattered chronic changes related to prior right lower lobe infiltrate which; has resolved. No significant acute consolidation. Small amount of trapped fluid; in the left major fissure.; ; ; Signed by; Rich Vargas MD 08/15/2016 03:04 P; Outcome: 16:04 Decision to Hospitalize by Provider. br1 17:52 Discharge Assessment: Patient awake, alert and oriented x 3. No cognitive and/or pml functional deficits noted. Patient verbalized understanding of disposition instructions. patient administered narcotics - no. The following High Risk Discharge criteria are identified: None. Admitted to PCU accompanied by nurse, accompanied by tech, via stretcher, with oxygen, on monitor, with chart. Condition: good Condition: stable. No special radiology studies were completed. Admission hand-off: Report Faxed Fax receipt verified by Eugenio RAMSEY RN. Property :Personal belongings accompany Pt. 17:56 Patient left the ED. pml Signatures: Dispatcher [employer] EDMS Marycruz Lennon, Admin Dir Unit deg Teresa Denny, Reg Reg gb Jose,Sharri lb BrandanLeslieRenata km6 Lisa Boyce Brian, MD MD br1 Angelo Em jml1 Eliz Fraga RN RN pml Isaias Rodriguez rn1 Corrections: (The following items were deleted from the chart) 14:05 13:59 Cardiovascular: Capillary refill < 3 seconds Rhythm is pml pml 14:07 14:04 BP 99 / 69; Pulse 77bpm; Resp 18bpm; Pulse Ox 94% 4 lpm Nasal Cannula; Temp 96.8F pml Temporal; 63.5 kg Reported; Height 5 ft. 10 in. Reported; BMI: 20.0; Pain 0/10; rn1 17:52 16:00 General: Appears in no apparent distress, Behavior is appropriate for age, pml cooperative, [facility] 17:52 16:00 Neurological: Level of Consciousness is awake, alert, Oriented to person, place, pml time, pml 17:52 16:00 Cardiovascular: Capillary refill < 3 seconds Rhythm is atrial fibrillation pml [facility] 17: 16:00 Respiratory: Airway is patent Respiratory effort is even, unlabored, pml pml 17:52 16:00 Derm: Skin is pink, warm & dry. pml pml Chart Complete MTDD
--- NOTE | 2016-08-17 18:57 | EDDOCDS ---
Physician Documentation [facility] Name: Sanjay Saeed Age: 71 yrs Sex: Male : 1945 Arrival Date: 08/15/2016 Time: 13:50 Bed 12 Private MD: Disposition: 08/15/16 16:04 Hospitalization ordered by Ekta Payne for Inpatient Admission. Preliminary diagnosis is Acute systolic (congestive) heart failure. - Bed requested for PCU. - Status is Inpatient Admission. pml - Condition is Stable. - Problem is new. - Symptoms have improved. Historical: - Allergies: IV Dye; Norvasc; Prilosec; - Home Meds: 1. diltiazem HCl 180 mg Oral cpER 1 cap once daily 2. prednisone 5 mg Oral tab once daily 3. Pradaxa 150 mg oral cap 1 cap 2 times per day 4. Advair Diskus 230-21 mcg/act 2puffs BID Inhl 5. levalbuterol HCl 1.25 mg/3 mL inhalation nebu 3 mL every 8 hours 6. Klor-Con 10 10 mEq Oral TbER 1 tab once daily 7. furosemide 20 mg Oral tab 1 tab once daily 8. pantoprazole 40 mg oral TbEC 1 tab once daily 9. atorvastatin 10 mg oral tab 1 tab once daily 10. ProAir HFA 90 mcg/actuation inhalation HFAA 2 puffs every 6 hours 11. Spiriva with HandiHaler 18 mcg Inhl CpDv 1 cap once daily 12. metoprolol succinate 100 mg Tb24 1 tab once daily - PMHx: Atrial Fib; Cardiac arrestfrom respiratory [id number]; COPD; GERD; High Cholesterol; Hypertension; Pulmonary Hypertension; Renal Failure w/o Dialysis; - PSHx: Cataract Surgery- Bilateral; Appendectomy; - Social history: Smoking status: Patient states former smoker of tobacco. No barriers to communication noted, The patient speaks fluent Armenian, Speaks appropriately for age. - Family history: Not pertinent. - : The pt / caregiver states he / she is on anticoagulants: Pradaxa (Dabigatran) Home medication list is obtained from the patient. - Exposure Risk Screening:: None identified. Vital Signs: 08/15 13:56 BP 99 / 69 (auto/); pml 14:00 Pulse 68 MON; Pulse Ox 82% ; pml 14:04 BP 99 / 69; Pulse 77; Resp 18; Temp 96.8(TE); Pulse Ox 82% on 4 lpm NC; Weight 63.5 kg pml / 139.99 lbs (R); Height 5 ft. 10 in. (177.80 cm) (R); Pain 0/10; 14:11 Pulse 66 MON; Pulse Ox 83% ; pml 14:12 BP 113 / 65 (auto/); pml 14:26 Pulse 62 MON; Pulse Ox 90% ; pml 14:27 BP 120 / 59 (auto/); pml 14:57 BP 124 / 61 (auto/); pml 15:04 Pulse 68 MON; Pulse Ox 100% ; pml 15:12 BP 124 / 75 (auto/); pml 15:12 Pulse 70 MON; Pulse Ox 96% ; pml 15:27 BP 124 / 72 (auto/); pml 15:28 Pulse 70 MON; Pulse Ox 91% ; pml 15:42 BP 185 / 70 (auto/); pml 15:43 Pulse 70 MON; Pulse Ox 89% ; pml 15:57 BP 127 / 74 (auto/); pml 15:58 Pulse 78 MON; Pulse Ox 86% ; pml 16:12 BP 148 / 72 (auto/); pml 16:13 Pulse 70 MON; Pulse Ox 90% ; pml 16:27 Pulse 74 MON; Pulse Ox 95% ; pml 16:27 BP 115 / 55 (auto/); pml 16:42 Pulse 72 MON; Pulse Ox 93% ; pml 16:42 BP 116 / 60 (auto/); pml 16:57 Pulse 76 MON; Pulse Ox 94% ; pml 16:57 BP 133 / 72 (auto/); pml 17:54 BP 127 / 71; Pulse 83; Resp 20; Temp 97.8; Pulse Ox 93% on 40% Venturi mask; Pain 0/10; pml 14:04 Body Mass Index 20.09 (63.50 kg, 177.80 cm) pml MDM: 14:03 Customer Specialist/Pulse Ox/q 30 min VS ordered. br1 14:03 IV Saline Lock ordered. br1 14:03 Rhythm Strip to chart ordered. br1 14:03 Undress patient appropriately for examination ordered. br1 14:03 B-Type Natiuretic Peptide Ordered. EDMS 14:03 Basic Metabolic Profile Ordered. EDMS 14:04 CBC with Diff Ordered. EDMS 14:04 Cardiac Injury Profile Ordered. EDMS 14:04 Troponin Ordered. EDMS 14:04 ECG WITH READING ER PHYS+CARDIAG ordered. EDMS 14:05 PT/INR Ordered. EDMS 14:05 PTT Ordered. EDMS 14:05 Chest, 1 View Ordered. EDMS 14:05 Oxygen at 4L/Min NC or Home dosage ordered. br1 14:05 Call Respiratory ordered. br1 14:06 -Arterial Blood Gas Ordered. EDMS 14:06 Albuterol-Ipratropium 3 ml Inhalation once ordered. br1 14:24 Call Respiratory complete. deg 14:26 CBC with Diff Reviewed. br1 14:26 PT/INR Reviewed. br1 14:26 PTT Reviewed. br1 14:26 -Arterial Blood Gas Reviewed. br1 14:29 Solu-MEDROL 125 mg IVP once ordered. br1 14:29 Albuterol-Ipratropium 3 ml Inhalation once ordered. br1 14:29 D-Dimer Quant Ordered. EDMS 14:38 CT Chest Without Contrast Ordered. EDMS 14:58 B-Type Natiuretic Peptide Reviewed. br1 14:58 D-Dimer Quant Reviewed. br1 14:58 Chest, 1 View Reviewed. br1 14:59 Furosemide 40 mg IVP once ordered. br1 15:00 BED REQUEST+ADM ordered. EDMS 15:40 Basic Metabolic Profile Reviewed. br1 15:40 Cardiac Injury Profile Reviewed. br1 15:40 Troponin Reviewed. br1 15:40 CT Chest Without Contrast Reviewed. br1 16:02 -Influenza A&B Rapid Antigen - Nose Ordered. EDMS 16:16 Financial registration complete. zo 16:21 Admission / Observation Status ordered. EDMS 16:21 2 GRAM SODIUM DIET ordered. EDMS 16:21 [place] [place] was scanned into [employer] and attached to record. zo 16:54 PHYSICAL THERAPY EVAL & TREAT ordered. EDMS 08/16 09:55 T-Sheet-- Draft Copy was scanned into [employer] and attached to record. gb 14:53 ECG/EKG was scanned into [employer] and attached to record. gb 14:53 Radiology Report was scanned into [employer] and attached to record. gb 15:42 ECG/EKG was scanned into [employer] and attached to record. gb Administered Medications: 08/15 14:20 Drug: Albuterol-Ipratropium 3 ml [ipratropium-albuterol 0.5 mg-3 mg(2.5 mg base)/3 mL lb nebulization soln (3 mL)] Route: Inhalation; 14:35 Drug: Albuterol-Ipratropium 3 ml [ipratropium-albuterol 0.5 mg-3 mg(2.5 mg base)/3 mL km6 nebulization soln (3 mL)] Route: Inhalation; 14:37 Drug: Solu-MEDROL 125 mg [Solu-Medrol 500 mg intravenous solution (125 mg)] Route: IVP; pml Site: right antecubital; 15:08 Drug: Furosemide 40 mg [furosemide 10 mg/mL injection solution (4 mL)] Route: IVP; pml Site: right antecubital; Signatures: Dispatcher [employer] EDMS Marycruz Lennon, Application Support Administrator Unit deg Teresa Denny, Reg Reg gb Lisa Boyce Brian, MD MD br1 Eliz Fraga RN RN [facility] Michael Perez RN RN [facility] Sharri Garcia Renata Gipson [phone] The chart was reviewed and I authenticate all verbal orders and agree with the evaluation and treatment provided.Attachments: 16:21 [facility] Payment Agreement zo 08/16 09:55 T-Sheet-- Draft Copy gb 14:53 ECG/EKG gb 15:42 ECG/EKG gb Chart Complete MTDD
[2016-08-17 20:00] VITALS: BP 116/76
[2016-08-17] MEDS: DABIGATRAN ETEXILATE 75 MG CAP (PRADAXA) PO SCH (20:27)
[2016-08-17] MEDS: ATORVASTATIN 10 MG TAB PO SCH (20:28)
[2016-08-18] VITALS (7 sets, daily range): BP systolic 101–134; BP diastolic 59–88
[2016-08-18] MEDS ORDERED: SLF 3 ML SYR IV PRN (03:30)
[2016-08-18 05:50] LABS: BASO # 0.1 K/mm3 (0.0-0.2); BASO % 0.7 % (0.0-1.0); EOS % 0.1 % (0.0-3.0); LARGE UNSTAINED CELL # 0.2 K/mm3 (0.0-0.4); LARGE UNSTAINED CELL % 1.8 % (0.0-4.0); LYMPH # 0.4 K/mm3 (1.5-4.5); MEAN CORPUSCULAR HEMOGLOBIN 28.6 pg (27.0-33.0); MEAN CORPUSCULAR VOLUME 92.2 fl (80.0-96.0); MONO # 0.8 K/mm3 (0.0-0.8); MONO % 6.7 % (0.0-5.0); NEUTROPHILS # 10.6 K/mm3 (1.8-7.7); NEUTROPHILS % 87.6 % (36.0-66.0); PLATELET COUNT, AUTOMATED 156 k/mm3 (150-450); RED CELL DISTRIBUTION WIDTH 17.2 % (11.5-14.5); WHITE BLOOD COUNT 12.1 K/mm3 (4.0-10.0)
[2016-08-18 05:57] LABS: INR 1.62
[2016-08-18 06:07] LABS: ALBUMIN 3.2 GM/DL (3.2-5.2); ALBUMIN/GLOBULIN RATIO 1.03 (1.00-1.93); ALKALINE PHOSPHATASE 177 U/L (45-117); ALT/SGPT 342 U/L (12-78); ANION GAP 10 MEQ/L (8-16); AST/SGOT 137 U/L (15-37); BILIRUBIN,TOTAL 2.9 MG/DL (0.2-1.0); BLOOD UREA NITROGEN 45 MG/DL (7-18); CALCIUM LEVEL 8.1 MG/DL (8.8-10.2); CARBON DIOXIDE LEVEL 29 MEQ/L (21-32); CHLORIDE LEVEL 106 MEQ/L (98-107); CREATININE FOR GFR 1.07 MG/DL (0.70-1.30); GLOMERULAR FILTRATION RATE > 60.0 (>42); GLUCOSE, FASTING 118 MG/DL (83-110); MAGNESIUM LEVEL 2.4 MG/DL (1.8-2.4); POTASSIUM SERUM 3.2 MEQ/L (3.5-5.1); SODIUM LEVEL 145 MEQ/L (136-145); TOTAL PROTEIN 6.3 GM/DL (6.4-8.2)
[2016-08-18] MEDS ORDERED: POTASSIUM CHLORIDE 10 MEQ SR TABLET PO ONE (07:30)
[2016-08-18] MEDS: predniSONE 5 MG TAB PO SCH (07:57)
[2016-08-18] MEDS: DABIGATRAN ETEXILATE 75 MG CAP (PRADAXA) PO SCH ×2 (07:57→21:11)
[2016-08-18] MEDS: FUROSEMIDE 20 MG TAB PO SCH ×2 (07:57→17:23)
[2016-08-18] MEDS: SENOKOT S TAB PO SCH ×2 (07:57→21:10)
[2016-08-18] MEDS: METOPROLOL SUCC (TopROL XL) 100MG *XL* TAB PO SCH (07:58)
[2016-08-18] MEDS: PANTOPRAZOLE 40MG TAB (PROTONIX) PO SCH (07:58)
[2016-08-18] MEDS: diltiaZEM **CD** 180 MG CAP PO SCH (07:58)
[2016-08-18] MEDS: SLF 3 ML SYR IV SCH ×3 (08:13→21:12)
[2016-08-18] MEDS: TIOTROPIUM INHALER/CAPSULE (SPIRIVA) INH SCH (08:31)
[2016-08-18] MEDS: ADVAIR HFA 230/21 INHALER INH SCH ×2 (08:32→20:32)
--- NOTE | 2016-08-18 13:37 | IPNPDOC ---
Text Note Date of Service The patient was seen on 08/18/16. NOTE Subjective: Patient is a 71 year old male with a PMHx of COPD (on 3-4 L of O2 at home), Severe Pulm HTN, Diastolic CHF, A fib, HTN, Hx of Cardiac arrest, DLP, and Chronic steroid dependence who presented to the ER with complaints of shortness of brath. He had a imaging which was consistent with vascular congestion. He was admitted for Diastolic CHF exacerbation. He was recently treated as [facility] and discharge on 08/13 for CHF exacerbation. Patient was seen and examined and bedside. He denied any problems. Objective: Vitals (See below) General: Lying in bed, no acute distress, comfortable, AAOx3 HEENT: NC, AT CVS: Irregularly irregular, +S1S2 Lungs: Fair air entry b/l, -w/r/r Abdomen: Soft, ND, NT, +BSx4 Extremities: +PPx4, -Edema, -Calf tenderness Assessment and plan: 1. Acute on Chronic Hypoxic respiratory failure - likely 2/2 diastolic CHF exacerbation - presented with shortness of breath requiring more supplemental oxygen - physical now reveals no crackles, no JVD or edema - breathing has improved and oxygenation down to baseline - CXR consistent with vascular congestion - c/w supplemental oxygen and titrate down to baseline - c/w Lasix PO 2. Acute kidney injury - likely 2/2 cardiorenal syndrome - Cr continues to trend down - Baseline of 1.6 - c/w Lasix PO 3. COPD - no evidence of exacerbation - c/w advair, spiriva, albuterol and prednisone 5mg 4. Transaminitis - likely 2/2 congestive hepatopathy - 2/2 CHF exacerbation - trending down - will continue to monitor 5. Coagulopathy - likely 2/2 congestive hepatopathy - 2/2 CHF exacerbation - INR elevated initially; trending down - will continue to follow 6. Atrial fibrillation - Remains rate controlled - c/w Diltiazem and metoprolol - c/w Pradaxa today 7. GERD - c/w PPI 8. DLP - c/w atorvastatin 9. HTN - c/w metoprolol and diltiazem 10. Pulmonary HTN 11. DVT prophylaxis - on full anticoagulation with Pradaxa Disposition: - Awaiting physical therapy clearance VS,Leighton, I+O VS, Fishbone, I+O Laboratory Tests 08/18/16 05:15 Calcium Level 8.1 L, Aspartate Amino Transf (AST/SGOT) 137 H, Alanine Aminotransferase (ALT/SGPT) 342 H, Alkaline Phosphatase 177 H, Total Bilirubin 2.9 H, Total Protein 6.3 L, Albumin 3.2, Red Blood Count 4.57, Mean Corpuscular Volume 92.2, Mean Corpuscular Hemoglobin 28.6, Mean Corpuscular Hemoglobin Concent 31.0 L, Red Cell Distribution Width 17.2 H, Neutrophils (%) (Auto) 87.6 H, Lymphocytes (%) (Auto) 3.0 L, Monocytes (%) (Auto) 6.7 H, Eosinophils (%) ( Auto) 0.1, Basophils (%) (Auto) 0.7, Neutrophils # (Auto) 10.6 H, Lymphocytes # (Auto) 0.4 L, Monocytes # (Auto) 0.8, Eosinophils # (Auto) 0.0, Basophils # ( Auto) 0.1 Vital Signs Date Time Temp Pulse Resp B/P Pulse Ox O2 Delivery O2 Flow Rate FiO2 08/18/16 09:00 Nasal Cannula 3.0 08/18/16 08:00 96.8 80 18 134/83 91 08/15/16 20:00 40 I&O- Last 24 Hours up to 6 AM 08/18/16 06:00 Intake Total 900 ml Output Total 2125 ml Balance -1225 ml IVÁN ALVARADO MD Aug 18, 2016 13:37
[2016-08-18] MEDS: ATORVASTATIN 10 MG TAB PO SCH (21:11)
[2016-08-19] MEDS: SLF 3 ML SYR IV SCH (05:29)
[2016-08-19 06:00] VITALS: BP 114/74
[2016-08-19 06:06] LABS: ALBUMIN 3.1 GM/DL (3.2-5.2); ALBUMIN/GLOBULIN RATIO 1.11 (1.00-1.93); ALKALINE PHOSPHATASE 175 U/L (45-117); ALT/SGPT 256 U/L (12-78); ANION GAP 9 MEQ/L (8-16); AST/SGOT 79 U/L (15-37); BILIRUBIN,TOTAL 2.6 MG/DL (0.2-1.0); BLOOD UREA NITROGEN 29 MG/DL (7-18); CALCIUM LEVEL 8.1 MG/DL (8.8-10.2); CARBON DIOXIDE LEVEL 31 MEQ/L (21-32); CHLORIDE LEVEL 103 MEQ/L (98-107); CREATININE FOR GFR 1.02 MG/DL (0.70-1.30); GLOMERULAR FILTRATION RATE > 60.0 (>42); GLUCOSE, FASTING 92 MG/DL (83-110); MAGNESIUM LEVEL 2.1 MG/DL (1.8-2.4); POTASSIUM SERUM 3.1 MEQ/L (3.5-5.1); SODIUM LEVEL 143 MEQ/L (136-145); TOTAL PROTEIN 5.9 GM/DL (6.4-8.2)
[2016-08-19 06:09] LABS: INR 1.53
[2016-08-19 06:13] LABS: BASO % 0.1 % (0.0-1.0); EOS # 0.1 K/mm3 (0.0-0.50); EOS % 0.7 % (0.0-3.0); LARGE UNSTAINED CELL # 0.1 K/mm3 (0.0-0.4); LARGE UNSTAINED CELL % 1.3 % (0.0-4.0); LYMPH # 0.9 K/mm3 (1.5-4.5); LYMPH % 6.7 % (24.0-44.0); MEAN CORPUSCULAR HEMOGLOBIN 28.7 pg (27.0-33.0); MEAN CORPUSCULAR HGB CONC 31.5 g/dl (32.0-36.5); MEAN CORPUSCULAR VOLUME 91.1 fl (80.0-96.0); MONO % 8.4 % (0.0-5.0); NEUTROPHILS # 9.3 K/mm3 (1.8-7.7); NEUTROPHILS % 82.7 % (36.0-66.0); PLATELET COUNT, AUTOMATED 149 k/mm3 (150-450); RED CELL DISTRIBUTION WIDTH 17.1 % (11.5-14.5); WHITE BLOOD COUNT 11.3 K/mm3 (4.0-10.0)
[2016-08-19] MEDS ORDERED: FURO40TA2 PO (08:05)
[2016-08-19] MEDS ORDERED: POTASSIUM CHLORIDE 10 MEQ SR TABLET PO ONE (08:15)
[2016-08-19] MEDS: ADVAIR HFA 230/21 INHALER INH SCH (08:31)
[2016-08-19] MEDS: TIOTROPIUM INHALER/CAPSULE (SPIRIVA) INH SCH (08:31)
[2016-08-19 08:54] VITALS: BP 115/69
[2016-08-19] MEDS: diltiaZEM **CD** 180 MG CAP PO SCH (08:54)
[2016-08-19] MEDS: PANTOPRAZOLE 40MG TAB (PROTONIX) PO SCH (08:56)
[2016-08-19] MEDS: METOPROLOL SUCC (TopROL XL) 100MG *XL* TAB PO SCH (08:56)
[2016-08-19] MEDS: DABIGATRAN ETEXILATE 75 MG CAP (PRADAXA) PO SCH (08:56)
[2016-08-19] MEDS: SENOKOT S TAB PO SCH (08:56)
[2016-08-19] MEDS: FUROSEMIDE 20 MG TAB PO SCH (08:56)
[2016-08-19] MEDS: predniSONE 5 MG TAB PO SCH (08:56)
[2016-08-19] MEDS ORDERED: POTASSIUM CHLORIDE 10 MEQ SR TABLET PO SCH (09:00)
--- NOTE | 2016-08-19 17:11 | DSES ---
DATE OF ADMISSION: 08/15/2016 DATE OF DISCHARGE: 08/19/2016 ATTENDING PHYSICIAN: Soha Pierce MD PRIMARY CARE PHYSICIAN: Unknown. REFERRING PHYSICIAN: Unknown. CONSULTING PHYSICIAN: None. CONDITION ON DISCHARGE: Stable. FINAL DIAGNOSIS: Acute on chronic hypoxic respiratory failure, likely secondary to diastolic congestive heart failure (CHF) exacerbation. PROCEDURES: None. HISTORY OF PRESENT ILLNESS: The patient is a 71-year-old male with a past medical history of chronic obstructive pulmonary disease (COPD) on 3 to 4 liters of oxygen at home, severe pulmonary hypertension, diastolic CHF, atrial fibrillation, hypertension, history of cardiac arrest, dyslipidemia and chronic steroid dependence who presents to the emergency room with complaints of shortness of breath. He had imaging which is consistent with vascular congestion. He was admitted for diastolic CHF exacerbation. He was recently treated at [facility] and discharged on 08/13 for CHF exacerbation. HOSPITAL COURSE: 1. Acute on chronic hypoxic respiratory failure, likely secondary to diastolic CHF exacerbation presented with shortness of breath requiring more supplemental oxygenation. Physical revealed no new crackles, jugular venous distention (JVD) or edema upon discharge. Breathing has improved throughout his hospital course and oxygenation has returned back to baseline. Chest x-ray was consistent with vascular congestion. He was continued on supplemental oxygen and has been transitioned down to baseline. He was put on Lasix IV initially and has been transitioned to by mouth (p.o.). 2. Acute kidney injury, likely secondary to cardiorenal syndrome. Creatinine continued to trend down while he has been recieving IV fluid hydration. Baseline creatinine 1.6. Continue with Lasix by mouth. 3. Chronic obstructive pulmonary disease (COPD). No evidence of exacerbation. Continue with Advair, Spiriva, albuterol and prednisone 5 mg. 4. Transaminitis, likely secondary to congestive hepatopathy, secondary to CHF exacerbation. Transaminitis has been trending down. 5. Coagulopathy, likely secondary to congestive hepatopathy, secondary to CHF exacerbation. INR was initially elevated, but is trending down. 6. Atrial fibrillation. Remains rate controlled. Continue with diltiazem and metoprolol. The patient was initially on Pradaxa, but has been held on first two days because INR has been elevated. He has be continued once INR has been normalized and the patient has been discharged home with Pradaxa. 7. Gastroesophageal reflux disease (GERD). Continue proton pump inhibitor (PPI). 8. Dyslipidemia. Continue with atorvastatin. 9. Hypertension. Continue with metoprolol and diltiazem. 10. Pulmonary hypertension. 11. Deep venous thrombosis (DVT) prophylaxis. Continue with anticoagulation with Pradaxa. DISCHARGE MEDICATIONS: The patient will be discharged home with the following medications: - albuterol 2 puffs inhaled every 4 hours as needed shortness of breath - atorvastatin 10 mg by mouth nightly - vitamin D 1000 units by mouth daily - Pradaxa 150 mg by mouth twice a day - diltiazem 180 mg by mouth daily - levalbuterol 1.25 mg inhaled four times a day as needed shortness of breath - metoprolol 100 mg by mouth daily - pantoprazole 40 mg by mouth daily - potassium chloride 200 mEq by mouth daily - prednisone 5 mg by mouth daily - Advair 230/21 two puffs inhaled twice a day - Spiriva one inhalation daily NEW MEDICATIONS PRESCRIBED: Include: - furosemide 40 mg by mouth twice a day PATIENT INSTRUCTIONS: The patient has been advised to followup with primary care provider and cardiology within the next 10 days. The patient advised to remain compliant with treatment modifications and return to the emergency room if he experiences any problems. Time spent on discharge: 35 minutes.
== END 2016-08-19 12:35 | disposition home health service (06) | DRG 291 ==
LOC: M ED 13:50 → M ED INP 16:08 → M PCU 18:02 → M MSPAV 08-18 21:58
PROVIDERS: ADMIT Internal Medicine Nephrology; ATTEND Internal Medicine
DX: I11.0 Hypertensive heart disease with heart failure (principal); J96.21 Acute and chronic respiratory failure with hypoxia; N17.9 Acute kidney failure, unspecified; D68.4 Acquired coagulation factor deficiency; I50.33 Acute on chronic diastolic (congestive) heart failure; J44.9 Chronic obstructive pulmonary disease, unspecified; I27.2 Other secondary pulmonary hypertension; I27.81 Cor pulmonale (chronic); I48.91 Unspecified atrial fibrillation; E78.5 Hyperlipidemia, unspecified; Z86.74 Personal history of sudden cardiac arrest; Z87.891 Personal history of nicotine dependence; Z79.01 Long term (current) use of anticoagulants; Z79.52 Long term (current) use of systemic steroids; Z79.51 Long term (current) use of inhaled steroids; Z79.899 Other long term (current) drug therapy; Z99.81 Dependence on supplemental oxygen

== ENCOUNTER 2016-09-08 07:56 | Inpatient (IN) | payer MEDICARE, BC ==
[~2016-09-08] VITALS: Ht 170.2 cm; Wt 58.5 kg
[~2016-09-08 07:56] MED LIST changes: +FURO40TA2 PO
--- NOTE | 2016-09-08 08:43 | REP ---
Clinical: Dyspnea and cough. Comparison: 04/14/2017. Findings: Multifocal left-sided infiltrates are compatible with pneumonia. Right hemithorax appears relatively well aerated and clear. Mediastinum and cardiac silhouette stable. No definite effusion. No pneumothorax. Skeletal structures stable. Impression: Multifocal left sided infiltrates compatible with acute pneumonia. Signed by Rich Vargas MD 09/08/2016 08:34 A
[2016-09-08 08:44] LABS: ABG BASE EXCESS -3.9 (-2.0-2.0); ABG HCO3 16.6 MEQ/L (22.0-26.0); ABG PARTIAL PRESSURE CO2 21.6 mmHg (35.0-45.0); ABG STANDARD HCO3 20.9 MEQ/L (22.0-26.0); ABG TOTAL CO2 17.3 MEQ/L (23.0-31.0); ABG pH (ARTERIAL) 7.504 UNITS (7.350-7.450)
[2016-09-08 08:47] LABS: ABG PARTIAL PRESSURE O2 43.9 mmHg (75.0-100.0)
[2016-09-08] MEDS: DABIGATRAN ETEXILATE 75 MG CAP (PRADAXA) PO SCH ×2 (09:00→22:39)
[2016-09-08] MEDS: NS 1,000 ML IV SCH (09:15)
--- NOTE | 2016-09-08 09:18 | REP ---
KUB ABDOMEN AND PELVIS: KUB film of abdomen and pelvis is performed. Several mild to moderately dilated small bowel loops are seen in the mid abdomen. A small amount of air is seen in the right colon. There is no air in the rectum. There is mild air in the stomach. Findings may represent small bowel ileus versus some degree of small bowel obstruction. Scattered vascular calcifications are present. There are degenerative changes of the spine. IMPRESSION: Several mild to moderately dilated small bowel loops in the mid abdomen may represent an ileus versus some degree of small bowel obstruction. Signed by Real Chowdhury MD 09/08/2016 12:41 P
[2016-09-08 09:29] LABS: BASO % 0.2 % (0.0-1.0); EOS % 0.3 % (0.0-3.0); LARGE UNSTAINED CELL # 0.2 K/mm3 (0.0-0.4); LARGE UNSTAINED CELL % 1.2 % (0.0-4.0); LYMPH # 0.7 K/mm3 (1.5-4.5); LYMPH % 4.5 % (24.0-44.0); MEAN CORPUSCULAR HGB CONC 31.3 g/dl (32.0-36.5); MEAN CORPUSCULAR VOLUME 92.6 fl (80.0-96.0); MONO # 0.5 K/mm3 (0.0-0.8); MONO % 3.3 % (0.0-5.0); NEUTROPHILS # 14.3 K/mm3 (1.8-7.7); NEUTROPHILS % 90.4 % (36.0-66.0); PLATELET COUNT, AUTOMATED 271 k/mm3 (150-450); RED CELL DISTRIBUTION WIDTH 16.9 % (11.5-14.5); WHITE BLOOD COUNT 15.8 K/mm3 (4.0-10.0)
[2016-09-08 09:46] LABS: ALBUMIN 2.9 GM/DL (3.2-5.2); ALBUMIN/GLOBULIN RATIO 0.83 (1.00-1.93); BILIRUBIN,DIRECT 0.9 MG/DL (0.0-0.2); CALCIUM LEVEL 8.8 MG/DL (8.8-10.2); CREATININE FOR GFR 1.35 MG/DL (0.70-1.30); GLOMERULAR FILTRATION RATE 55.6 (>42); POTASSIUM SERUM 4.3 MEQ/L (3.5-5.1); TOTAL PROTEIN 6.4 GM/DL (6.4-8.2)
[2016-09-08] MEDS ORDERED: METOPROLOL TART 25 MG TABLET PO ONE (10:00)
[2016-09-08] MEDS ORDERED: CEFEPIME HCL 2 GM in D5W MINI-BAG PLUS 50 ML IV ONE (10:15)
[2016-09-08] MEDS ORDERED: DILUENT IV ONE (10:15)
[2016-09-08] MEDS ORDERED: NS IV ONE (10:15)
[2016-09-08 10:48] LABS: INR 1.55
[2016-09-08] MEDS ORDERED: ALBUTEROL 90 MCG/ACT 8GM HFA INHALER INH PRN (12:00)
[2016-09-08] MEDS: LEVALBUTEROL 1.25 MG/0.5 ML CONCENTRATE NEB INH SCH ×3 (12:00→20:00)
[2016-09-08] MEDS ORDERED: VANCOMYCIN HCL 1,000 MG in D5W 0 ML IV SCH (12:00)
[2016-09-08] MEDS ORDERED: methylPREDNISolone INJ 125 MG/2 ML VIAL (J2930) IV SCH (13:00)
[2016-09-08] MEDS ORDERED: PIPERACILLIN/TAZOBACTAM SOD 3.375 GM in D5W MINI-BAG PLUS 50 ML IV SCH (13:00)
--- NOTE | 2016-09-08 13:33 | PHACANCOPD ---
PHARMACY VANCOMYCIN DOSING Pt Demographics Demographics Patient Age:71 , Weight: , Gender: male Adjusted Body Weight Date: 09/08/16, Adjusted Body Weight: [69.4] Kg Events Past 24 Hours Events Past 24 Hours: NO: Change in CrCl, Dialysis, Diuretic Therapy, Elevation in WBC, Fever, Other, Pending Diagnostics, Pending Procedures Vancomycin Vancomycin indication: HCAP Vancomycin Target Ranges: 10-20 mcg/ml Vancomycin Load Y/N: Yes Load Dose Date Time Vancomycin Load Dose: 1.5G Date: 09/08/16 Time: 14:00 Vancomycin Dose Date: 09/08/16. Current Vancomycin Dose: [1G q24H] Intermittent Dosing?: No Labs Labs Item Value Date Time White Blood Count 15.8 K/mm3 H 09/08/16 0906 Creatinine 1.35 MG/DL H 09/08/16 0906 Micro Microbiology 09/08/16 Blood Culture, Received Pending 09/08/16 Blood Culture, Received Pending 09/08/16 Influenza Virus Type A Antigen - Final, Complete 09/08/16 Influenza Virus Type B Antigen - Final, Complete 09/08/16 Urine Culture, Received Pending Creatinine Clearance Date:09/08/16. Creatinine Clearance: [47.6ML/MIN]. Pending Labs URINE AND BLOOD CULTURE PENDING Assessment and Plan Maintaining Current Dose?: Yes Reason for dose change: No Dose Change Pharmacist Note Pharmacist Note Date: 09/08/16. Pharmacist note: Pt is a 71 y/o male being treated for hcap goal trough 10-20mcg/ml. He has no vancomycin history here at [facility]. To achieve goal a 1.5g loading dose was started at 14:00 09/08. Maintenance therapy will consist of 1g q24h starting 09/09 @14. We will continue to monitor and adjust dose as needed. LIVAN JANE PHARMACY Sep 08, 2016 13:33
--- NOTE | 2016-09-08 13:55 | HPE ---
DATE OF ADMISSION: 09/08/2016 PRIMARY CARE PHYSICIAN: Dr. Rouse. VICE PRESIDENT UNDERWRITING: Dr. Antony. CHIEF COMPLAINT: Cough. HISTORY OF PRESENT ILLNESS: The patient is a 71-year-old man with a history of diastolic congestive heart failure, cor pulmonale, chronic hypoxic respiratory failure who was recently admitted at [facility] and discharged from there 08/13. He was readmitted once again at [facility] on 08/15 and discharged on 08/19 at that time for decompensated diastolic heart failure. The patient has been good, in his usual state of health up until Tuesday evening when he developed a cough. He reportedly had an episode of nausea and vomiting with dry heaves. He states that yesterday he spent the whole day in bed coughing and he did have one episode of dry heaves. This morning, he felt so unwell and was having difficulty breathing which prompted him to present to the emergency room. He tells me that he did have a constipated bowel movement this morning and that he is passing gas from below. He denies any abdominal pain or nausea at the present time. He denies fevers, chills, chest pain. He does have some mild shortness of breath. He denies orthopnea, PND, increasing in his weights at home. PAST MEDICAL HISTORY: Atrial fibrillation. Chronic hypoxic respiratory failure secondary to chronic obstructive pulmonary disease (COPD) steroid dependent. Severe pulmonary hypertension. Hypertension. Dyslipidemia. Gastroesophageal reflux disease. Cardiac arrest in 2012. HOME MEDICATIONS: - diltiazem 180 mg daily - Lasix 40 mg by mouth twice daily - metoprolol succinate 100 mg daily - potassium chloride 20 mEq daily - prednisone 5 mg daily - Ventolin HFA two puffs every 4 hours as needed shortness of breath - vitamin D 1000 units daily - Pradaxa 150 mg by mouth twice daily - Xopenex nebulizers inhaled four times daily - Protonix 40 mg by mouth daily - Advair 230/21, two puffs inhaled twice daily - Spiriva 18 mcg inhaled daily ALLERGIES: CONTRAST MEDIA, OMEPRAZOLE, AMLODIPINE. SOCIAL HISTORY: The patient is a former smoker. He denies alcohol or elicit drug use. He lives with his who accompanies him in the emergency room. FAMILY HISTORY: Noncontributory. REVIEW OF SYSTEMS: Negative other than history of present illness. SURGICAL HISTORY: Vocal cord polyp removal 30 years ago. Appendectomy. Cataract surgery. PHYSICAL EXAMINATION: Vital signs: Temperature 98.5, pulse 124 irregular, respiratory rate 22, blood pressure 118/61, oxygen saturation 84% on General: He is a frail, elderly man lying in the stretcher at a 30 degree angle. He appears comfortable and in no acute distress. HEENT: He has moist mucous membranes. I do not appreciate significant elevation in the CVP at this time. Cardiovascular exam: S1, S2. Irregularly irregular. Tachycardic. Respiratory exam: Rhonchi and scattered rales on the left with diminished breath sounds. Otherwise fairly clear on the right. No appreciable rales at the base. Good air movement. He has a prolonged expiratory phase. Abdominal exam: Obese. Bowel sounds present. The abdomen is soft and nontender. Extremities: No clubbing, cyanosis or edema. LABORATORY STUDIES: WBC 15.8, hemoglobin 16.2, hematocrit 51.8, platelet count 271. Chemistry panel: Sodium 141, potassium 4.3, chloride 104, bicarbonate 23, BUN 18, creatinine 1.3 which is approximately at baseline, lactic acid 5.3, alkaline phosphatase 234, troponin 0.22. BNP greater than 5000. TSH within normal limits. Arterial blood gas revealed a pH of 7.5, pC02 of 21.6, pO2 of 43.9. INR 1.5. Microbiology, influenza swab is negative. Two sets of blood cultures are pending. Urine culture is pending. Abdominal x-ray reveals several mild moderately dilated small bowel loops in the mid abdomen may represent an ileus versus some degree of small bowel obstruction. Patient had a chest x-ray that revealed multifocal left sided infiltrates compatible with acute pneumonia. ASSESSMENT AND PLAN: This is a 71-year-old man presenting with severe sepsis secondary to what appears to be multifocal left sided pneumonia. PROBLEMS: 1. Severe sepsis secondary to left sided multifocal pneumonia. Given the patient's recent hospitalization, there is some concern for health care associated pneumonia. I will start him on vancomycin and Zosyn with a pharmacy consult for dosing. He will be admitted to the progressive care unit. As per sepsis protocol in the emergency room, patient received a significant amount of IV fluid resuscitation. He does have an elevated lactic acid. We will trend his lactic acid. The patient normally has 4 liters of oxygen at baseline, and at this time, he is requiring that. He does not appear to be grossly volume overloaded, however, given his history of recent decompensation of his congestive heart failure (CHF), I am concerned about him becoming fluid overloaded. As such, after he has completed his fluids provided in the ER which his blood pressure has responded to, we will monitor for the need of any further fluids while trending his lactic acid and watching him close clinically. I did have a lengthy discussion with both the patient and his . They have elected for DO NOT RESUSCITATE/DO NOT INTUBATE. Medical orders for life sustaining treatment (MOLST) form was completed and witnessed by nursing staff and placed in the chart. All questions were answered to their satisfaction. 2. Atrial fibrillation with rapid ventricular response likely a component related to sepsis syndrome. Given that his blood pressure was mildly soft at the time of presentation, we will actually hold his home diltiazem 180 and will also hold his metoprolol 100 and provide him with metoprolol 25 mg short acting every 8 hours with hold parameters for his heart rate. He may require more of this, if so, we can titrate it back up. However, at this time, we are walking a delicate balance between fluid resuscitation and sepsis as well as rate control. He is anticoagulated with Pradaxa chronically. We will continue this. 3. Hypoxemia. Patient does not appear to be too far from his baseline when I see him in the emergency room. We will continue with nasal cannula at 4 liters titrating oxygen saturations for 88-92. He is in chronic hypoxic respiratory failure related to chronic obstructive pulmonary disease (COPD). His home inhalers and nebulizer treatments will be continued. Please note that the patient is chronically on prednisone 5 mg daily given that he is hypotensive and in mild distress at the time of his presentation. We will provide him with Solu-Medrol 60 mg every 8 hours stress steroids for possible adrenal insufficiency and monitor him closely with goal to wean him back to his home steroids in the near future. 4. Diastolic congestive heart failure. At this time, he appears to be euvolemic. We are fluid resuscitating. We will hold his Lasix and we are monitoring his blood pressure very closely. We will check an echocardiogram. Patient does have a significantly elevated BNP. Most clinically he does not appear to be in decompensated heart failure. 5. Hypertension as outlined above. 6. Dyslipidemia. Continue with statin therapy. 7. Vitamin D deficiency. Continue supplementation. 8. Troponinemia. He likely has an element of coronary artery disease. We are checking echocardiogram. We will continue to trend his troponins. We are fluid resuscitating him. He is on a beta nikos and a statin. He is also on Pradaxa. His EKG does not reveal any acute ischemic findings. No previous echo on file. If his troponin were to spike suddenly, would consider cardiology consultation more urgently. He will be monitored in the progressive care unit. 9. Deep venous thrombosis (DVT) prophylaxis. Patient is on Pradaxa. DISPOSITION: Patient was admitted to the progressive care unit. His clinical status remains guarded. He is DO NOT RESUSCITATE/DO NOT INTUBATE. Will follow him closely. PORTIA
[2016-09-08] MEDS ORDERED: VANCOMYCIN HCL 1,000 MG, VIAL MATE ADAPTER 1 EACH in D5W 250 ML IV SCH (14:00)
[2016-09-08] MEDS ORDERED: VANCOMYCIN HCL 500 MG in D5W MINI-BAG PLUS 100 ML IV ONE ×2 (15:00→19:00)
[2016-09-08] MEDS: METOPROLOL TART 25 MG TABLET PO SCH ×2 (15:58→22:39)
[2016-09-08 16:00] VITALS: BP 104/60
[2016-09-08] MEDS: VITAMIN D 1,000 INTERNATIONAL UNITS TABLET PO SCH (17:32)
[2016-09-08] MEDS: PANTOPRAZOLE 40MG TAB (PROTONIX) PO SCH (17:33)
[2016-09-08] MEDS: methylPREDNISolone INJ 125 MG/2 ML VIAL (J2930) IV SCH (18:51)
[2016-09-08] MEDS: VANCOMYCIN HCL 1,000 MG, VIAL MATE ADAPTER 1 EACH in D5W 250 ML IV SCH (18:52)
[2016-09-08 20:00] VITALS: BP 122/69
[2016-09-08] MEDS: PIPERACILLIN/TAZOBACTAM SOD 3.375 GM in D5W MINI-BAG PLUS 50 ML IV SCH (20:40)
[2016-09-08] MEDS: ADVAIR HFA 230/21 INHALER INH SCH (20:51)
[2016-09-08 21:30] VITALS: BP 118/70
[2016-09-08] MEDS: BISACODYL 5 MG TAB PO PRN (22:44)
[2016-09-08 23:59] VITALS: BP 102/66
[2016-09-09] VITALS (8 sets, daily range): BP systolic 98–147; BP diastolic 68–91
[2016-09-09] MEDS: methylPREDNISolone INJ 125 MG/2 ML VIAL (J2930) IV SCH (01:35)
[2016-09-09] MEDS: NS 1,000 ML IV SCH ×3 (01:36→11:53)
[2016-09-09] MEDS: PIPERACILLIN/TAZOBACTAM SOD 3.375 GM in D5W MINI-BAG PLUS 50 ML IV SCH ×3 (03:50→21:02)
[2016-09-09 05:23] LABS: EOS # 0.1 K/mm3 (0.0-0.50); EOS % 0.8 % (0.0-3.0); LARGE UNSTAINED CELL # 0.1 K/mm3 (0.0-0.4); LARGE UNSTAINED CELL % 0.7 % (0.0-4.0); LYMPH # 0.4 K/mm3 (1.5-4.5); LYMPH % 3.9 % (24.0-44.0); MEAN CORPUSCULAR HEMOGLOBIN 29.1 pg (27.0-33.0); MEAN CORPUSCULAR HGB CONC 32.1 g/dl (32.0-36.5); MEAN CORPUSCULAR VOLUME 90.4 fl (80.0-96.0); MONO # 0.1 K/mm3 (0.0-0.8); MONO % 1.3 % (0.0-5.0); NEUTROPHILS # 8.2 K/mm3 (1.8-7.7); NEUTROPHILS % 93.3 % (36.0-66.0); PLATELET COUNT, AUTOMATED 201 k/mm3 (150-450); WHITE BLOOD COUNT 8.8 K/mm3 (4.0-10.0)
[2016-09-09 05:38] LABS: ANION GAP 10 MEQ/L (8-16); BLOOD UREA NITROGEN 16 MG/DL (7-18); CALCIUM LEVEL 8.1 MG/DL (8.8-10.2); CARBON DIOXIDE LEVEL 19 MEQ/L (21-32); CHLORIDE LEVEL 109 MEQ/L (98-107); GLOMERULAR FILTRATION RATE > 60.0 (>42); GLUCOSE, FASTING 158 MG/DL (83-110); POTASSIUM SERUM 3.6 MEQ/L (3.5-5.1); SODIUM LEVEL 138 MEQ/L (136-145)
[2016-09-09] MEDS: METOPROLOL TART 25 MG TABLET PO SCH ×3 (06:11→21:02)
[2016-09-09] MEDS: LEVALBUTEROL 1.25 MG/0.5 ML CONCENTRATE NEB INH SCH ×4 (07:52→20:00)
[2016-09-09] MEDS: TIOTROPIUM INHALER/CAPSULE (SPIRIVA) INH SCH (07:52)
[2016-09-09] MEDS: ADVAIR HFA 230/21 INHALER INH SCH ×2 (07:52→19:57)
[2016-09-09] MEDS: VITAMIN D 1,000 INTERNATIONAL UNITS TABLET PO SCH (08:44)
[2016-09-09] MEDS: PANTOPRAZOLE 40MG TAB (PROTONIX) PO SCH (08:44)
[2016-09-09] MEDS: DABIGATRAN ETEXILATE 75 MG CAP (PRADAXA) PO SCH ×2 (08:44→21:02)
[2016-09-09] MEDS ORDERED: NS 1,000 ML IV SCH (10:30)
[2016-09-09] MEDS: predniSONE 20 MG TAB PO SCH (10:53)
--- NOTE | 2016-09-09 10:58 | IPN ---
DATE: 09/09/2016 SUBJECTIVE: The patient tells me that he is feeling better today. He tells me that he is no longer having nausea. No dry heaves. No vomiting. He is still having a cough, but he feels as though it is improving. He tells me that he still has his shortness of breath, but that is also somewhat improved from yesterday also. He denies any other specific complaints. OBJECTIVE: VITAL SIGNS: Temperature 97.7, pulse 92, respiratory rate 24, blood pressure 98/70, oxygen saturation 93% on 3 liters nasal cannula. GENERAL: He is a frail, elderly man lying completely flat in bed. He does not appear to be in any acute distress. HEENT: He has moist mucous membranes. No elevation in central venous pressure. CARDIOVASCULAR EXAM: S1, S2. Irregularly irregular. He does not appear tachycardic on my examination. RESPIRATORY EXAM: He has rhonchi and diminished breath sounds on the left. Good air movement on the right. ABDOMINAL EXAM: Bowel sounds are present. The abdomen is obese and soft. EXTREMITIES: No clubbing, cyanosis or edema. He appears quite slim in the extremities with a Cushingoid phenotype. LABORATORY STUDIES: WBC 8.8, down from 15.8, hemoglobin 12.3, hematocrit 38.3, platelet count 201. Dilutional drop in all cell lines Chemistry panel: Sodium 138, potassium 3.6, chloride 109, bicarbonate 19, BUN 16, creatinine 0.9, lactic acid is 2.1. His troponin peaked at 0.25 and has been down trending since. INR is 1.5 yesterday. Microbiology: Blood cultures are negative after 24 hours. Urine culture is negative. Influenza swab is negative. No new imaging. ASSESSMENT AND PLAN: This is a 71-year-old man presenting with severe sepsis secondary to multifocal left sided healthcare-associated pneumonia. 1. Severe sepsis secondary to left-sided multifocal healthcare-associated pneumonia. The patient is currently on vancomycin and Zosyn. We will check a methicillin resistant Staphylococcus aureus (MRSA) screen that has been ordered. He does appear to be improving at this time. He is more hemodynamically stable. He did receive a significant amount of IV fluid. His lactic acid is trending down. His baseline is 3 to 4 liters of oxygen, which he does not appear far from this and is comfortable when lying flat. The patient is a DO NOT RESUSCITATE, DO NOT INTUBATE. If his cultures continue to remain negative, he can likely be transitioned with a narrower spectrum of antibiotic. I suspect that he may be improved to the point where he is stable for discharge within the next 48 to 72 hours. 2. Atrial fibrillation with rapid ventricular response. The patient was unable to keep his oral medications down prior to the hospitalization. At this time, he is no longer having nausea and vomiting; however, his blood pressure remains soft and as such we are very gently rate controlling him with metoprolol short acting every 8 hours and we are holding his long-acting metoprolol and his diltiazem at this time. Once he has improved hemodynamics, we could likely restart these medications. 3. Hypoxemia. He does not appear significantly far from his baseline. We will continue to titrate his nasal cannula for saturations 88 to 92%. He has chronic hypoxic respiratory failure secondary to chronic obstructive pulmonary disease (COPD). He is continued on all of his home nebulizers and inhalers. He is normally on prednisone 5 mg daily. He did receive stress dose steroids at the time of his admission. At this time, we will begin tapering down to oral prednisone with a goal of titrating him back down to his baseline of 5 mg daily. 4. Diastolic congestive heart failure (CHF), appears to be euvolemic at this time. He was aggressively fluid resuscitated. We will hold off on any further IV fluids at this time. Although he has tolerated the fluids quite well yesterday, his BNP remains quite elevated. 5. Hypertension. As outlined above. 6. Dyslipidemia. We will continue with statin therapy. 7. Vitamin D deficiency. He is on supplementation. 8. Troponinemia. Likely due to demand ischemia and he likely has a component of underlying coronary artery disease. Echocardiogram has been ordered. His troponins are trending down. He is on a beta nikos and a statin, as well as Pradaxa. He did not have any acute EKG findings. 9. Deep vein thrombosis (DVT) prophylaxis. The patient is on Pradaxa. DISPOSITION: The patient is improving at this time. He may be able to be discharged within the next 48 to 72 hours pending continued improvement. [facility]
[2016-09-09] MEDS: VANCOMYCIN HCL 1,000 MG, VIAL MATE ADAPTER 1 EACH in D5W 250 ML IV SCH (17:40)
--- NOTE | 2016-09-09 20:37 | ECGEPIP ---
Stationary ECG Study [facility] - ED Test Date: 2016-09-08 Pat Name: VANESSA COKER Department: Room: - Gender: M Property Accountant: carol : 1945 Requested By: Fred Grider Order Number: [id number] Reading MD: Ayesha Camacho Measurements Intervals [place] Rate: 126 P: PA: 0 QRS: 111 QRSD: 94 T: -30 QT: 302 QTc: 437 Interpretive Statements ATRIAL FIBRILLATION WITH RAPID VENTRICULAR RESPONSE POSSIBLE RIGHT VENTRICULAR HYPERTROPHY SEPTAL MYOCARDIAL INFARCTION, PROBABLY OLD NSTTW ABNORMALITY INCREASED RATE 08/15/16 Electronically Signed On 09-09-2016 20:37:02 EDT by Ayesha Camacho
[2016-09-10] MEDS: NS 1,000 ML IV SCH (00:16)
[2016-09-10 04:00] VITALS: BP 134/87
[2016-09-10] MEDS: PIPERACILLIN/TAZOBACTAM SOD 3.375 GM in D5W MINI-BAG PLUS 50 ML IV SCH ×3 (05:21→20:40)
[2016-09-10] MEDS: METOPROLOL TART 25 MG TABLET PO SCH ×4 (05:22→23:53)
[2016-09-10 05:39] LABS: EOS % 0.3 % (0.0-3.0); LARGE UNSTAINED CELL # 0.1 K/mm3 (0.0-0.4); LARGE UNSTAINED CELL % 0.9 % (0.0-4.0); LYMPH # 0.6 K/mm3 (1.5-4.5); LYMPH % 4.5 % (24.0-44.0); MEAN CORPUSCULAR HEMOGLOBIN 29.1 pg (27.0-33.0); MEAN CORPUSCULAR HGB CONC 31.7 g/dl (32.0-36.5); MEAN CORPUSCULAR VOLUME 91.7 fl (80.0-96.0); MONO # 0.3 K/mm3 (0.0-0.8); MONO % 2.9 % (0.0-5.0); NEUTROPHILS # 9.5 K/mm3 (1.8-7.7); NEUTROPHILS % 91.3 % (36.0-66.0); PLATELET COUNT, AUTOMATED 167 k/mm3 (150-450); RED CELL DISTRIBUTION WIDTH 16.9 % (11.5-14.5); WHITE BLOOD COUNT 10.4 K/mm3 (4.0-10.0)
[2016-09-10 05:53] LABS: ANION GAP 12 MEQ/L (8-16); BLOOD UREA NITROGEN 19 MG/DL (7-18); CALCIUM LEVEL 8.6 MG/DL (8.8-10.2); CARBON DIOXIDE LEVEL 18 MEQ/L (21-32); CHLORIDE LEVEL 109 MEQ/L (98-107); CREATININE FOR GFR 0.96 MG/DL (0.70-1.30); GLOMERULAR FILTRATION RATE > 60.0 (>42); GLUCOSE, FASTING 153 MG/DL (83-110); POTASSIUM SERUM 3.7 MEQ/L (3.5-5.1); SODIUM LEVEL 139 MEQ/L (136-145)
[2016-09-10] MEDS: LEVALBUTEROL 1.25 MG/0.5 ML CONCENTRATE NEB INH SCH ×4 (06:34→20:00)
[2016-09-10] MEDS ORDERED: diltiaZEM **CD** 180 MG CAP PO SCH (06:45)
[2016-09-10] MEDS ORDERED: diltiaZEM **CD** 180 MG CAP PO ONE (07:15)
[2016-09-10 08:00] VITALS: BP 129/87
[2016-09-10] MEDS: ADVAIR HFA 230/21 INHALER INH SCH ×2 (08:35→20:32)
[2016-09-10] MEDS: TIOTROPIUM INHALER/CAPSULE (SPIRIVA) INH SCH (08:35)
--- NOTE | 2016-09-10 09:23 | ECHO ---
DATE OF PROCEDURE: 09/09/2016 REFERRING PHYSICIAN: Dr. Lisa Bajwa. INDICATION: Congestive heart failure. The patient measures 175 cm and weighs 69 kg. DIMENSIONS: IVS - 1.1 LV - 2.4 LVPW - 1.1 LA - 3.6 Aorta - 2.7 FINDINGS: The study is of good technical quality. Left ventricle is relatively small size and has overall normal contractility. There is a D shape to the interventricular septum in both diastole and systole indicative of both pressure and volume overloaded right ventricle. Right ventricle is massively dilated and globally hypokinetic. Both atria are severely enlarged, right atrium much more than left. Aortic valve is tricuspid. It is sclerotic but mobility is preserved. Mitral valve also exhibits mild degenerative abnormalities. Tricuspid valve appears normal. Pulmonic valve also appears normal. RV outflow tract and pulmonary artery are dilated. Trace pericardial effusion is noted. Inferior vena cava is on upper limits of normal size but has no apparent collapse with respiration indicative of probably severely elevated central venous pressure. Aortic root is normal. Aortic arch and abdominal aorta were not well seen. Doppler interrogation of aortic valve reveals no stenosis and mild insufficiency. There is trace mitral insufficiency. There is severe tricuspid insufficiency with systolic reflux into hepatic veins. Calculated pulmonary artery pressure exceeds 100 mmHg. Pulmonic valve has trace insufficiency. Evaluation of diastolic function is inconclusive. The patient has underlying irregular rhythm, I assume atrial fibrillation. CONCLUSION: 1. Study is of good technical quality. 2. Severely dilated hypokinetic right ventricle with severe pulmonary hypertension. 3. Severe tricuspid insufficiency. 4. Severely elevated central venous pressure. 5. Relatively small and underfilled left ventricle. 6. Mild aortic insufficiency. 7. Biatrial enlargement. 8. I suspect underlying atrial fibrillation. COMMENT: SBE prophylaxis is not recommended. The study cannot reliably answer whether the study is due to left-sided congestive heart failure, but it appears unlikely and alternative causes of pulmonary hypertension should be pursued. [facility]TD[facility]
[2016-09-10] MEDS: PANTOPRAZOLE 40MG TAB (PROTONIX) PO SCH (09:39)
[2016-09-10] MEDS: DABIGATRAN ETEXILATE 75 MG CAP (PRADAXA) PO SCH ×2 (09:40→20:40)
[2016-09-10] MEDS: VITAMIN D 1,000 INTERNATIONAL UNITS TABLET PO SCH (09:40)
[2016-09-10] MEDS: predniSONE 20 MG TAB PO SCH (09:40)
--- NOTE | 2016-09-10 11:48 | IPN ---
DATE: 09/10/2016 SUBJECTIVE: The patient tells me that he feels very short of breath when he gets up to ambulate, but otherwise when he is lying at rest he does feel significant better. He tells me that his cough is improved. He tells me that he has not had any further nausea or any episodes of dry heaves. OBJECTIVE: VITAL SIGNS: Temperature 97.2, pulse 81, respiratory rate 18, blood pressure 129/87, oxygen saturation 89% on 4 liters nasal cannula. GENERAL: He is a frail, elderly, obese, man lying completely flat in bed. He does not appear to be in any acute distress. HEENT: Cranial nerves II through XII appear to be grossly intact. He has moist mucous membranes. There is some elevation in central venous pressure. CARDIOVASCULAR EXAM: S1, S2. Irregularly irregular. He is mildly tachycardic. RESPIRATORY EXAM: Prolonged expiratory phase. Diminished throughout. ABDOMINAL EXAM: Obese. EXTREMITIES: No clubbing, cyanosis or appreciable edema. LABORATORY STUDIES: WBC 10.4, hemoglobin 12, hematocrit 37.9, platelet count 169. Chemistry panel: Sodium 139, potassium 3.7, chloride 109, bicarbonate 18, BUN 19, creatinine 0.9. Microbiology: Thus far negative. No new imaging. ASSESSMENT AND PLAN: This is a 71-year-old man presenting with severe sepsis secondary to multifocal left sided healthcare-associated pneumonia. 1. Severe sepsis secondary to left-sided multifocal healthcare-associated pneumonia. The patient is currently on vancomycin and Zosyn. We are awaiting the results of a methicillin resistant Staphylococcus aureus (MRSA) screen of the nares. I suspect that tomorrow we can likely narrow spectrum his antibiotics, potentially to cover for community-acquired pneumonia should his cultures all remain negative. He has improved hemodynamics at this time. We will discontinue IV normal saline and we will restart his home diltiazem and titrate up his metoprolol in order to achieve better rate control should his blood pressure tolerate this. Could consider diuresis in the near future. 2. Chronic hypoxic respiratory failure secondary to COPD, severe pulmonary hypertension. At his baseline, he is on 3 to 4 liters of continuous oxygen. Titrate for saturations of 88 to 92. He is a DO NOT RESUSCITATE, DO NOT INTUBATE. He has severe pulmonary hypertension with associated cor pulmonale from long-standing respiratory disease. He is continued on all of his home nebulizers and inhalers. He is only on prednisone 5 mg a day. He initially was hypotensive when they presented to the emergency room, but he was on stress dose steroids. He has now been transitioned to oral prednisone, which we will begin titrating down and taper back down to his goal of 5 mg daily. 3. Diastolic congestive heart failure (CHF). At the present time, the patient does appear to be fairly euvolemic, at least on clinical examination. He did have an echocardiogram completed, which does confirm suspected severe dilated hypokinetic right ventricle with severe pulmonary hypertension, tricuspid regurgitation and elevated central venous pressure, small under filled left ventricle. Likely secondary to long-standing pulmonary hypertension. At the present time, we are making an effort to achieve rate control. Once we achieve rate control and the patient is back on his regular dose of calcium channel nikos and beta nikos, I will consider restarting the patient's diuresis. 4. Hypertension. The patient is on metoprolol and diltiazem. His blood pressure is controlled. He has actually been hypotensive throughout much of his stay. 5. Dyslipidemia. Continue with statin therapy. 6. Vitamin D deficiency. He is on supplementation. 7. Troponinemia. Likely due to demand ischemia and he has an element of underlying coronary artery disease. He is on a beta nikos and a statin, as well as Pradaxa. Consider outpatient cardiology referral for outpatient stress testing. 8. Deep vein thrombosis (DVT) prophylaxis. The patient is on Pradaxa. 9. Atrial fibrillation. The patient is on Pradaxa. We are restarting his home medications as blood pressure allows in order to achieve better rate control. DISPOSITION: The patient continues to improve. We should be able to control his heart rate and diurese him, I suspect that he may be able to be discharged over the next 48 to 72 hours.
[2016-09-10 12:00] VITALS: BP 116/69
[2016-09-10 16:00] VITALS: BP 145/76
[2016-09-10] MEDS: VANCOMYCIN HCL 1,000 MG, VIAL MATE ADAPTER 1 EACH in D5W 250 ML IV SCH (17:17)
[2016-09-10 19:50] VITALS: BP 111/75
[2016-09-10 23:59] VITALS: BP 134/90
[2016-09-11] MEDS: PIPERACILLIN/TAZOBACTAM SOD 3.375 GM in D5W MINI-BAG PLUS 50 ML IV SCH (03:46)
[2016-09-11 04:00] VITALS: BP 140/83
[2016-09-11 05:31] LABS: BASO % 0.2 % (0.0-1.0); EOS % 0.4 % (0.0-3.0); LARGE UNSTAINED CELL # 0.1 K/mm3 (0.0-0.4); LARGE UNSTAINED CELL % 0.7 % (0.0-4.0); LYMPH # 0.7 K/mm3 (1.5-4.5); LYMPH % 5.2 % (24.0-44.0); MEAN CORPUSCULAR HEMOGLOBIN 28.7 pg (27.0-33.0); MEAN CORPUSCULAR HGB CONC 31.2 g/dl (32.0-36.5); MEAN CORPUSCULAR VOLUME 91.9 fl (80.0-96.0); MONO # 0.4 K/mm3 (0.0-0.8); NEUTROPHILS # 10.5 K/mm3 (1.8-7.7); NEUTROPHILS % 90.5 % (36.0-66.0); PLATELET COUNT, AUTOMATED 156 k/mm3 (150-450); RED CELL DISTRIBUTION WIDTH 17.4 % (11.5-14.5); WHITE BLOOD COUNT 11.6 K/mm3 (4.0-10.0)
[2016-09-11 05:48] LABS: ANION GAP 13 MEQ/L (8-16); BLOOD UREA NITROGEN 20 MG/DL (7-18); CALCIUM LEVEL 8.8 MG/DL (8.8-10.2); CARBON DIOXIDE LEVEL 17 MEQ/L (21-32); CHLORIDE LEVEL 110 MEQ/L (98-107); CREATININE FOR GFR 0.99 MG/DL (0.70-1.30); GLOMERULAR FILTRATION RATE > 60.0 (>42); GLUCOSE, FASTING 139 MG/DL (83-110); POTASSIUM SERUM 3.8 MEQ/L (3.5-5.1); SODIUM LEVEL 140 MEQ/L (136-145)
[2016-09-11] MEDS: METOPROLOL TART 25 MG TABLET PO SCH (06:31)
[2016-09-11 07:49] VITALS: BP 145/84
[2016-09-11] MEDS: LEVALBUTEROL 1.25 MG/0.5 ML CONCENTRATE NEB INH SCH ×4 (08:00→20:00)
[2016-09-11] MEDS: ADVAIR HFA 230/21 INHALER INH SCH ×2 (08:23→20:24)
[2016-09-11] MEDS: TIOTROPIUM INHALER/CAPSULE (SPIRIVA) INH SCH (08:23)
[2016-09-11] MEDS: VITAMIN D 1,000 INTERNATIONAL UNITS TABLET PO SCH (09:49)
[2016-09-11] MEDS: predniSONE 20 MG TAB PO SCH (09:49)
[2016-09-11] MEDS: diltiaZEM **CD** 180 MG CAP PO SCH (09:49)
[2016-09-11] MEDS: DABIGATRAN ETEXILATE 75 MG CAP (PRADAXA) PO SCH ×2 (09:50→20:40)
[2016-09-11] MEDS: FUROSEMIDE 40 MG/4 ML VIAL (J1940) IV SCH ×2 (09:50→16:20)
[2016-09-11] MEDS: LevoFLOXacin IV 500 MG in APPROPRIATE DILUENT 1 EA IV SCH (09:50)
[2016-09-11] MEDS: METOPROLOL SUCC (TopROL XL) 100MG *XL* TAB PO SCH (09:50)
[2016-09-11] MEDS: PANTOPRAZOLE 40MG TAB (PROTONIX) PO SCH (09:50)
[2016-09-11] MEDS: ONDANSETRON 4MG/2ML VIAL (J2405) IV PRN (11:19)
[2016-09-11] MEDS ORDERED: CEPACOL LOZENGE PO PRN (11:30)
[2016-09-11 12:00] VITALS: BP 100/61
[2016-09-11 12:02] LABS: MAGNESIUM LEVEL 2.3 MG/DL (1.8-2.4)
--- NOTE | 2016-09-11 13:02 | IPN ---
DATE: 09/11/2016 SUBJECTIVE: The patient tells me that he feels well and feels back to his baseline. He wants to go home. He tells me that he wishes to leave the hospital as soon as possible. He tells me if he is not going home today, then he is going to leave tomorrow against medical advice and that he likely would not return to the hospital ever again, as he does not wish to pursue further treatments after this hospitalization. He has no specific complaints at this time. OBJECTIVE: VITAL SIGNS: Temperature 96.9, pulse 84, respiratory rate 19, blood pressure 145/84, oxygen saturation 90% on 2 liters nasal cannula. GENERAL: He is a frail elderly man lying flat in bed. He appears to be in no acute distress. HEENT: He has a dysconjugate gaze. Moist mucous membranes. Otherwise, cranial nerves appear to be grossly intact. CARDIOVASCULAR EXAM: S1, S2, irregularly irregular. He is not tachycardic. RESPIRATORY EXAM: Fairly clear. ABDOMINAL EXAM: Obese. Bowel sounds are present. The abdomen is soft. EXTREMITIES: No clubbing, cyanosis or edema. LABORATORY STUDIES: WBC 11.9, hemoglobin 12, platelet count 156. Chemistry panel: Sodium 140, potassium 3.8, chloride 110, bicarbonate 17, BUN 20, creatinine 0.9. Microbiology: Blood cultures are negative after 72 hours. Influenza swab is negative. Urine culture is negative. No new imaging. ASSESSMENT AND PLAN: This is a 71-year-old man presenting with severe sepsis secondary to multifocal left-sided healthcare-associated pneumonia. Problems: 1. Severe sepsis secondary to left-sided multifocal healthcare-associated pneumonia. The patient has been on vancomycin and Zosyn. Given that his cultures remain negative at this time, I will narrow spectrum to levofloxacin. Today is day #4 of antibiotic therapy. He should complete 7 days total. When he presented, he did appear to be in severe sepsis with hypotension. He did receive a significant amount of intravenous (IV) fluid resuscitation. 2. Chronic obstructive pulmonary disease (COPD) and chronic hypoxic respiratory failure. The patient has severe pulmonary hypertension and has a baseline oxygen requirement of 3-4 liters. He has a DO NOT RESUSCITATE, DO NOT INTUBATE. I did convince him that it was necessary to diurese him and remove some of the fluid he required to treat for resuscitation at the time of his presentation prior to dispositioning as decompensated cor pulmonale, I suspect, could prompt him to re-present to the hospital again in near future. The patient tells me that he has had several hospitalizations in the last 6 months given that he has fairly advanced right heart failure and fairly advanced lung disease. 3. Chronic hypoxic respiratory failure. He is interested in hospice. I did inform him we could place a hospice consult, and he could see them as early as Tuesday while in the hospital. He would prefer to be discharged as soon as he is ready and followup with them in the outpatient setting. However, he did express to me that he does not wish to re-present to the hospital in future. 4. Diastolic congestive heart failure. The patient seems to be in some mildly decompensated cor pulmonale, right-sided heart failure. Will start him on IV Lasix in hopes of diuresing him and improving his status prior to dispositioning him, potentially within the next 24-48 hours. I did discuss at length the risks and benefits of leaving against medical advice, including and the benefits of remaining in hopes of better optimizing his volume status and a longer life. 5. Hypertension. The patient is controlled with metoprolol and diltiazem. 6. Atrial fibrillation with rapid ventricular response. The patient has a better rate control now than when he presented hypotensive and tachycardic related to sepsis. He has been restarted on his diltiazem and home metoprolol. The patient is anticoagulated with Pradaxa. 7. Dyslipidemia. He is on a statin. 8. Vitamin D deficiency. He is on supplementation. 9. Troponinemia. He likely has underlying coronary artery disease. He is on a beta nikos, statin and Pradaxa. Could reconsider outpatient cardiology referral for a stress test; however, it seems as though the patient is less likely interested in further testing and aggressive measures. 10. Deep vein thrombosis (DVT) prophylaxis. The patient is on Pradaxa. DISPOSITION: Will continue to monitor the patient closely. I suspect he could be discharged within the next 24 to 48 hours.
[2016-09-11 16:00] VITALS: BP 118/83
[2016-09-11 20:00] VITALS: BP 121/68
[2016-09-12] VITALS (7 sets, daily range): BP systolic 105–150; BP diastolic 53–84; O2SAT 68
[2016-09-12] MEDS: FUROSEMIDE 40 MG/4 ML VIAL (J1940) IV SCH ×3 (00:18→16:11)
[2016-09-12 05:31] LABS: ANION GAP 12 MEQ/L (8-16); BLOOD UREA NITROGEN 32 MG/DL (7-18); CALCIUM LEVEL 8.4 MG/DL (8.8-10.2); CARBON DIOXIDE LEVEL 24 MEQ/L (21-32); CHLORIDE LEVEL 109 MEQ/L (98-107); GLOMERULAR FILTRATION RATE > 60.0 (>42); GLUCOSE, FASTING 119 MG/DL (83-110); POTASSIUM SERUM 3.1 MEQ/L (3.5-5.1); SODIUM LEVEL 145 MEQ/L (136-145)
[2016-09-12 05:43] LABS: BASO # 0.1 K/mm3 (0.0-0.2); BASO % 0.7 % (0.0-1.0); EOS % 0.1 % (0.0-3.0); LARGE UNSTAINED CELL # 0.2 K/mm3 (0.0-0.4); LARGE UNSTAINED CELL % 1.9 % (0.0-4.0); LYMPH # 0.7 K/mm3 (1.5-4.5); LYMPH % 6.5 % (24.0-44.0); MEAN CORPUSCULAR HEMOGLOBIN 28.3 pg (27.0-33.0); MEAN CORPUSCULAR VOLUME 88.5 fl (80.0-96.0); MONO # 0.7 K/mm3 (0.0-0.8); NEUTROPHILS # 9.2 K/mm3 (1.8-7.7); NEUTROPHILS % 84.8 % (36.0-66.0); PLATELET COUNT, AUTOMATED 169 k/mm3 (150-450); RED CELL DISTRIBUTION WIDTH 17.3 % (11.5-14.5); WHITE BLOOD COUNT 10.8 K/mm3 (4.0-10.0)
[2016-09-12 06:29] LABS: MAGNESIUM LEVEL 2.3 MG/DL (1.8-2.4)
[2016-09-12] MEDS ORDERED: POTASSIUM CHLORIDE 10 MEQ SR TABLET PO ONE ×2 (06:30→14:00)
[2016-09-12] MEDS: LEVALBUTEROL 1.25 MG/0.5 ML CONCENTRATE NEB INH SCH ×4 (07:08→19:45)
[2016-09-12] MEDS: ADVAIR HFA 230/21 INHALER INH SCH ×2 (08:59→19:45)
[2016-09-12] MEDS: TIOTROPIUM INHALER/CAPSULE (SPIRIVA) INH SCH (08:59)
[2016-09-12] MEDS: ONDANSETRON 4MG/2ML VIAL (J2405) IV PRN ×2 (09:23→16:11)
[2016-09-12] MEDS: diltiaZEM **CD** 180 MG CAP PO SCH (09:24)
[2016-09-12] MEDS: predniSONE 20 MG TAB PO SCH (09:24)
[2016-09-12] MEDS: LevoFLOXacin IV 500 MG in APPROPRIATE DILUENT 1 EA IV SCH (09:24)
[2016-09-12] MEDS: VITAMIN D 1,000 INTERNATIONAL UNITS TABLET PO SCH (09:25)
[2016-09-12] MEDS: METOPROLOL SUCC (TopROL XL) 100MG *XL* TAB PO SCH (09:25)
[2016-09-12] MEDS: PANTOPRAZOLE 40MG TAB (PROTONIX) PO SCH (09:25)
[2016-09-12] MEDS: DABIGATRAN ETEXILATE 75 MG CAP (PRADAXA) PO SCH ×2 (09:25→20:18)
[2016-09-12] MEDS ORDERED: POTASSIUM CHLORIDE 10% LIQ 20 MEQ/15 ML UDC PO ONE (14:00)
[2016-09-12] MEDS ORDERED: METOCLOPRAMIDE INJ 10MG/2ML VIAL (J2765) IV ONE (17:00)
[2016-09-12] MEDS: BISACODYL 5 MG TAB PO PRN (20:18)
[2016-09-13] VITALS: BP 121/60
[2016-09-13] MEDS: FUROSEMIDE 40 MG/4 ML VIAL (J1940) IV SCH ×2 (00:15→09:05)
[2016-09-13 04:32] VITALS: BP 119/71
[2016-09-13 05:36] LABS: MEAN CORPUSCULAR HGB CONC 31.9 g/dl (32.0-36.5); PLATELET COUNT, AUTOMATED 189 k/mm3 (150-450); RED CELL DISTRIBUTION WIDTH 17.9 % (11.5-14.5)
[2016-09-13 05:39] LABS: ANION GAP 10 MEQ/L (8-16); BLOOD UREA NITROGEN 42 MG/DL (7-18); CALCIUM LEVEL 8.6 MG/DL (8.8-10.2); CARBON DIOXIDE LEVEL 27 MEQ/L (21-32); CHLORIDE LEVEL 105 MEQ/L (98-107); CREATININE FOR GFR 1.19 MG/DL (0.70-1.30); GLOMERULAR FILTRATION RATE > 60.0 (>42); GLUCOSE, FASTING 135 MG/DL (83-110); POTASSIUM SERUM 3.8 MEQ/L (3.5-5.1); SODIUM LEVEL 142 MEQ/L (136-145)
[2016-09-13 06:21] LABS: BANDS 1 % (< 11); NUCLEATED RED BLOOD CELL 20 % (0-0)
--- NOTE | 2016-09-13 06:28 | IPN ---
DATE: 09/12/2016 SUBJECTIVE: The patient tells me that he is feeling better. He admits that he did try to leave the hospital against medical advice yesterday evening but felt too weak to actually physically leave the hospital. At the present time he tells me that he feels better and has no complaints. He tells me that his shortness of breath has improved. OBJECTIVE: VITAL SIGNS: Temperature 96.7, pulse 83, respiratory rate 19, blood pressure 142/84, oxygen saturation 89% on 4 liters nasal cannula. GENERAL: He is a frail, elderly, man laying flat in bed. He does not appear to be in any acute distress. HEENT: Cranial nerves II-XII appear to be grossly intact. Moist mucous membranes. He has some elevation in his central venous pressure (CVP). CARDIOVASCULAR: S1, S2, irregularly irregular with no additional heart sounds appreciated. RESPIRATORY: Diminished breath sounds at the bases but fairly good movement. ABDOMINAL: Obese. Bowel sounds are present. Abdomen is soft. EXTREMITIES: No clubbing, cyanosis, or edema. He appears wasted in the extremities. LABORATORY STUDIES: WBC 10.8, hemoglobin 11.2, hematocrit 35.2, platelet count 169. Chemistry panel: Sodium 142, potassium 3.8, chloride 105, bicarbonate 27, BUN 42, creatinine 1.1. No new microbiology or imaging. ASSESSMENT AND PLAN: This is a 71-year-old man who presented with severe sepsis secondary to left-sided multifocal pneumonia. 1. Severe sepsis secondary to left-sided multifocal pneumonia. The patient is on day #5 of antibiotics and should complete 7 days total. His hypotension has resolved. He is clinically improved. His syndrome is resolving. He is afebrile. 2. Chronic obstructive pulmonary disease (COPD) and chronic hypoxic respiratory failure. The patient has a baseline oxygen requirement of 3-4 liters. He is DO NOT RESUSCITATE/DO NOT INTUBATE. He was convinced to stay despite actually physically signing the paperwork to leave against medical advice. The concern is that he has received aggressive fluids during his sepsis presentation and he has severe cor pulmonale and decompensated right-sided heart failure and we feel as though the patient would benefit from further diuresis. The patient actually informs me that he is willing to stay until Tuesday at this time and that he is interested in speaking with hospice because he does not wish to come back to the hospital as he has had numerous admissions regarding his chronic hypoxic respiratory failure. 3. Diastolic congestive heart failure. The patient does not appear to be in left-sided heart failure, at this time he appears to be in right-sided heart failure. 4. Hypertension. Controlled with metoprolol and diltiazem. 5. Atrial fibrillation. He is rate controlled with metoprolol and diltiazem. He is anticoagulated with Pradaxa. 6. Dyslipidemia. He is on a statin. 7. Vitamin D deficiency. He is on supplementation. 8. Troponinemia. He likely has underlying coronary artery disease. He is on a beta nikos, statin, and Pradaxa. At this time the patient is actually considering hospice measures given the severity of his chronic hypoxic respiratory failure and due to his severe, likely end-stage right-sided heart failure, I feel as though he is appropriate for hospice. 9. Deep venous thrombosis (DVT) prophylaxis. The patient is on Pradaxa. DISPOSITION: The patient agreed to remain in the hospital and not change his mind, as he did several times yesterday. We will place a hospice consult for him on Tuesday and have him seen by physical therapy in case he does not wish to elect for hospice measures, and continue diuresing him in the interim.
[2016-09-13 06:37] LABS: ANISOCYTOSIS 1+
[2016-09-13] MEDS: ADVAIR HFA 230/21 INHALER INH SCH ×2 (07:22→20:38)
[2016-09-13] MEDS: TIOTROPIUM INHALER/CAPSULE (SPIRIVA) INH SCH (07:22)
[2016-09-13] MEDS: LEVALBUTEROL 1.25 MG/0.5 ML CONCENTRATE NEB INH SCH ×4 (07:22→20:00)
[2016-09-13 08:00] VITALS: BP 125/63
[2016-09-13] MEDS: diltiaZEM **CD** 180 MG CAP PO SCH (09:05)
[2016-09-13] MEDS: LevoFLOXacin IV 500 MG in APPROPRIATE DILUENT 1 EA IV SCH (09:05)
[2016-09-13] MEDS: predniSONE 20 MG TAB PO SCH (09:06)
[2016-09-13] MEDS: PANTOPRAZOLE 40MG TAB (PROTONIX) PO SCH (09:06)
[2016-09-13] MEDS: DABIGATRAN ETEXILATE 75 MG CAP (PRADAXA) PO SCH ×2 (09:06→20:17)
[2016-09-13] MEDS: VITAMIN D 1,000 INTERNATIONAL UNITS TABLET PO SCH (09:06)
[2016-09-13] MEDS: METOPROLOL SUCC (TopROL XL) 100MG *XL* TAB PO SCH (09:06)
[2016-09-13] MEDS ORDERED: LORA1TAB12 PO (14:22)
[2016-09-13] MEDS ORDERED: MORP1SOL PO (14:22)
[2016-09-13] MEDS ORDERED: ATRO1OPD PO (14:22)
[2016-09-13] MEDS ORDERED: MORPHINE 10MG/0.5ML ORAL CONCENTRATE SOLUTION U/D SL PRN (14:30)
[2016-09-13] MEDS ORDERED: LORazepam 1 MG TAB PO PRN (14:30)
[2016-09-13] MEDS ORDERED: FLEET ENEMA PR PRN (14:30)
--- NOTE | 2016-09-13 14:55 | DSES ---
DATE OF ADMISSION: 09/08/2016 DATE OF DISCHARGE: DISCHARGE DIAGNOSIS: Severe sepsis secondary to a left sided multifocal healthcare associated pneumonia. SECONDARY DIAGNOSES: Chronic hypoxic respiratory failure. Diastolic congestive heart failure (CHF). Cor pulmonale. Hypertension. Atrial fibrillation. Dyslipidemia. Vitamin D deficiency. Troponinemia. HOSPITAL COURSE: The patient is a 71-year-old man who presented after recently being discharged. He returned with dyspnea and left sided pneumonia, multifocal in nature. He was found with severe sepsis, hypotensive and atrial fibrillation with rapid ventricular response (RVR). He did receive aggressive IV fluids and was admitted to telemetry. His prognosis was guarded at the time of admission. He elected to be DO NOT RESUSCITATE/DO NOT INTUBATE. He was fluid resuscitated. He was treated appropriately with broad spectrum antibiotics and narrowed spectrum. The patient improved his clinical status. His breathing improved back to its baseline. His blood pressure improved. His lactic acid resolved. The patient was then diuresed for decompensated cor pulmonale and right heart failure with good improvement in his symptoms. The patient at this point was approaching discharge ability at which point the patient expressed wishes that given his advanced lung disease and cardiac disease as well and chronic obstructive pulmonary disease (COPD), that he would like to be comfort measures only ([facility]) and hospice. A hospice consult was placed. The patient was seen and evaluated by hospice on 09/13 who will do an intake for him on 09/14/2016. The patient will be discharged home on 09/14/2016 with home hospice. SUBJECTIVE: Today, the patient reports he is feeling well. He had no complaints at this time. OBJECTIVE: VITAL SIGNS: Temperature 96.7, pulse 85, respiratory rate 18, blood pressure 125/63, oxygen saturation 81% on 4 liters nasal cannula. GENERAL: He is a frail elderly man lying flat in bed in no distress. HEENT: Cranial nerves II through XII are grossly intact. He has moist mucus membranes. No elevation of central venous pressure (CVP). CARDIOVASCULAR EXAM: S1 and S2 regular. RESPIRATORY EXAM: Clear. ABDOMINAL EXAM: Benign. EXTREMITIES: No clubbing, cyanosis, or edema. LABORATORY STUDIES: WBC 24, hemoglobin 11.3, hematocrit 55.5, platelet count 189. Chemistry panel: Sodium 142, potassium 3.8, chloride 105, bicarb 27, BUN 42, creatinine 1.1. Microbiology all negative. No new imaging. ASSESSMENT/PLAN: This is a 71-year-old man with severe sepsis secondary to a left sided multifocal healthcare pneumonia. At this time, the patient is being transferred to comfort measures only ([facility]) and plan is for home hospice tomorrow. Nonessential medications will be discontinued. Hospice medications will be initiated. Medical Order for Life-Sustaining Treatment (MOLST) form was completed and signed and is in the chart. Greater than 30 minutes was spent organizing disposition and answering all questions to the patient's satisfaction. [facility]
[2016-09-14] MEDS: LEVALBUTEROL 1.25 MG/0.5 ML CONCENTRATE NEB INH SCH ×3 (08:00→15:50)
[2016-09-14] MEDS: ONDANSETRON 4MG/2ML VIAL (J2405) IV PRN (08:15)
[2016-09-14] MEDS: TIOTROPIUM INHALER/CAPSULE (SPIRIVA) INH SCH (08:28)
[2016-09-14] MEDS: ADVAIR HFA 230/21 INHALER INH SCH (08:29)
[2016-09-14] MEDS: METOPROLOL SUCC (TopROL XL) 100MG *XL* TAB PO SCH (09:00)
[2016-09-14] MEDS: DABIGATRAN ETEXILATE 75 MG CAP (PRADAXA) PO SCH ×2 (09:00→10:05)
[2016-09-14] MEDS: predniSONE 20 MG TAB PO SCH ×2 (10:05→11:14)
[2016-09-14 10:10] VITALS: BP 112/91
[2016-09-14] MEDS: diltiaZEM **CD** 180 MG CAP PO SCH (10:10)
[2016-09-14] MEDS: PANTOPRAZOLE 40MG TAB (PROTONIX) PO SCH ×2 (10:10→11:14)
--- NOTE | 2016-09-14 13:35 | IPNPDOC ---
Text Note Date of Service The patient was seen on 09/14/16. NOTE Subjective: Patient is a 71 year old male with a PMHx of A. fib, COPD, Pulm HTN, HTN, DLP, Cardiac arrest (2012), and GERD who presented to the ED with cough associated with nausea and vomiting. He was found to have HCAP pneumonia and received aggressive IV fluid resuscitation as well as starting antibiotics. Patient wanted to leave AMA, but was convinced to stay. He was made comfort measures yesterday. Patient has been seen and examined at the bedside. He has been having some emesis with dark colored vomit. He denies any other issues. Objective: Vitals (See below) General: Lying in bed, no acute distress, comfortable, AAOx3 HEENT: NC, AT CVS: Irregularly irregular, +S1S2 Lungs: Fair air entry b/l, -w/r/r Abdomen: Poor inspiratory effort, Extremities: +PPx4, - Edema, - Calf tenderness Assessment and plan: 1. Severe sepsis - 2/2 left sided multi-focal pneumonia - Patient has been transitioned to comfort care only measures - c/w [employer] order set 2. Elevated troponin - likely 2/2 demand ischemia - given his end stage heart disease and lung disease - will c/w [employer] 3. COPD - Baseline oxygen requirement of 3-4Liters; currently on non-rebreather at 10L - Patient is DNR / DNI - c/w Albuterol, Advair and Spiriva - c/w [employer] 4. Diastolic CHF 5. HTN - c/w metoprolol and diltiazem 6. Atrial fibrillation - c/w metoprolol and diltiazem for rate control - will hold anticoagulation given emesis with dark vomitus 7. DLP - c/w 8. Vitamin D deficiency - c/w supplementation 9. DVT prophylaxis - has been on full anticoagulation (stopped 2/2 dark vomitus) - c/w SCDs VS,Fishbone, I+O VS, Fishbone, I+O Vital Signs Date Time Temp Pulse Resp B/P Pulse Ox O2 Delivery O2 Flow Rate FiO2 09/14/16 10:15 90 Non-Rebreather 10.0 09/14/16 10:10 90 112/91 09/13/16 12:00 96.9 18 I&O- Last 24 Hours up to 6 AM 09/14/16 06:00 Intake Total 580 ml Output Total 900 ml Balance -320 ml IVÁN ALVARADO MD Sep 14, 2016 13:35
--- NOTE | 2016-09-15 13:16 | DSES ---
ADDENDUM TO DISCHARGE SUMMARY ON 09/13/2016 DATE OF ADMISSION: 09/08/2016 DATE OF DISCHARGE: 09/14/2016 ATTENDING PHYSICIANS: MD Lisa Horan MD PRIMARY CARE PHYSICIAN: Dr. Price Rouse REFERRING PHYSICIAN: None. CONSULTING PHYSICIANS: None. CONDITION ON DISCHARGE: Guarded. FINAL DIAGNOSIS: Severe sepsis secondary to left sided multifocal healthcare associated pneumonia. SECONDARY DIAGNOSES: Chronic hypoxic respiratory failure. Diastolic congestive heart failure (CHF). Cor pulmonale. Hypertension. Atrial fibrillation. Dyslipidemia. Vitamin D deficiency. Troponinemia. HOSPITAL COURSE ADDENDUM: The patient was planned for discharge home with hospice, however, the patient was unable to have hospice at home and his discharge was delayed by about one day. Upon holding discharge, the patient within the hospital setting. The patient was pronounced on 09/14/2016 at 7:00 p.m. [facility]
== END 2016-09-14 23:05 | disposition expired | DRG 871 ==
LOC: EDBD 07:56 → M ED 08:45 → M ED INP 11:59 → M PCU 21:27 → M MSPAV 09-13 18:20
PROVIDERS: ADMIT Internal Medicine; ATTEND Internal Medicine
DX: A41.9 Sepsis, unspecified organism (principal); J18.9 Pneumonia, unspecified organism; I50.32 Chronic diastolic (congestive) heart failure; J96.11 Chronic respiratory failure with hypoxia; E87.2 Acidosis; I24.8 Other forms of acute ischemic heart disease; J44.0 Chronic obstructive pulmonary disease with (acute) lower respiratory infection; Z51.5 Encounter for palliative care; Z66 Do not resuscitate; R65.20 Severe sepsis without septic shock; I48.91 Unspecified atrial fibrillation; I27.2 Other secondary pulmonary hypertension; I27.81 Cor pulmonale (chronic); Y95 Nosocomial condition; E55.9 Vitamin D deficiency, unspecified; I25.119 Atherosclerotic heart disease of native coronary artery with unspecified angina pectoris; I36.1 Nonrheumatic tricuspid (valve) insufficiency; E78.5 Hyperlipidemia, unspecified; K21.9 Gastro-esophageal reflux disease without esophagitis; Z86.74 Personal history of sudden cardiac arrest; Z79.52 Long term (current) use of systemic steroids; Z79.01 Long term (current) use of anticoagulants; Z79.51 Long term (current) use of inhaled steroids; Z87.891 Personal history of nicotine dependence; Z99.81 Dependence on supplemental oxygen